=== PATIENT | female | born 1965 | race Caucasian/White ===

== ENCOUNTER 2017-07-08 16:37 | Observation (INO) | payer BC ==
[~2017-07-08] VITALS: Ht 152.4 cm; Wt 37.2 kg
[2017-07-08] MEDS ORDERED: KETOROLAC TROMETHAMINE 30 MG/ML VIAL IV STA (17:07)
[2017-07-08] MEDS ORDERED: CLONIDINE HCL 0.1 MG TAB PO ONE (17:15)
--- NOTE | 2017-07-08 17:33 | Diagnostic Imaging Report ---
EXAMINATION: CHEST 2 VIEWS 07/08/2017 4:38 PM COMPARISON: None INDICATION: Chills DISCUSSION: LINES: None. LUNGS: The lungs are well inflated and clear. No pneumonia or pulmonary edema. PLEURA: No pleural effusion or pneumothorax. HEART AND MEDIASTINUM: The cardiomediastinal silhouette is unremarkable. BONES AND SOFT TISSUES: No acute osseous lesion. The soft tissues are normal. IMPRESSION: No acute cardiopulmonary disease. Bharath San MD Signed by: Dr. Bharath San M.D. on 07/08/2017 5:29 PM
[2017-07-08 17:48] LABS: BASOPHILS % 0.6 % (0.0-1.0); EOSINOPHILS % 0.4 % (0.0-6.0); LYMPHOCYTES # (AUTO) 0.4 (1.0-3.2); LYMPHOCYTES % 6.8 % (18.0-39.1); MEAN CORPUSCULAR HEMOGLOBIN 33.7 pg (28-32); MEAN CORPUSCULAR VOLUME 96.4 fL (81-99); MONOCYTES # (AUTO) 0.6 (0.2-0.8); MONOCYTES % 10.1 % (4.4-11.3); NEUTROPHILS # (AUTO) 4.5 (2.1-6.9); NEUTROPHILS % 81.5 % (38.7-80.0); PLATELET COUNT 91 x10e3/uL (140-360); RED BLOOD COUNT 4.15 x10e6/uL (3.6-5.1); RED CELL DISTRIBUTION WIDTH 12.6 % (11.7-14.4)
[2017-07-08 17:53] LABS: AMPHETAMINES SCREEN,URINE NEGATIVE (NEGATIVE); BENZODIAZEPINES SCREEN,URINE POSITIVE (NEGATIVE); PHENCYCLIDINE SCREEN,URINE NEGATIVE (NEGATIVE)
[2017-07-08 18:03] LABS: ALANINE AMINOTRANSFERASE 50 IU/L (0-55); ALBUMIN 4.4 g/dL (3.5-5.0); ALBUMIN/GLOBULIN RATIO 1.2 (0.8-2.0); ALKALINE PHOSPHATASE 88 IU/L (40-150); ANION GAP 21.5 mmol/L (8-16); BLOOD UREA NITROGEN < 5 mg/dL (7-26); CALCIUM 9.5 mg/dL (8.4-10.2); CARBON DIOXIDE 23 mmol/L (22-29); CHLORIDE 95 mmol/L (98-107); CREATININE, SERUM 0.62 mg/dL (0.57-1.11); EST GLOMERULAR FILTRATION RATE > 60 ML/MIN (60-); GLUCOSE 124 mg/dL (74-118); POTASSIUM 3.5 mmol/L (3.5-5.1); SODIUM 136 mmol/L (136-145)
[2017-07-08 18:08] LABS: BUN/CREATININE RATIO 8 (6-25)
[2017-07-08 18:11] LABS: CREATINE KINASE 83 IU/L (29-168)
[2017-07-08 18:25] LABS: FREE THYROXINE INDEX 1.7022 (1.4-3.8); THYROID STIMULATING HORMONE 2.478 uIU/mL (0.350-4.940)
[2017-07-08] MEDS ORDERED: SODIUM CHLORIDE 0.9% 1000ML 1,000 ML ONE (18:42)
[2017-07-08] MEDS ORDERED: SODIUM CHLORIDE 0.9% 1000ML 1,000 ML IV SCH (18:45)
[2017-07-08] MEDS ORDERED: MECLIZINE HCL 12.5 MG TAB PO ONE (18:45)
[2017-07-08] MEDS ORDERED: SODIUM CHLORIDE FLUSH 10 ML SYR INJ PRN (19:00)
[2017-07-08] MEDS ORDERED: ONDANSETRON HCL INJ 2 MG/ML VIAL IV PRN (19:00)
[2017-07-08] MEDS ORDERED: MORPHINE SULFATE 2 MG/ML SYR IV PRN (19:00)
--- OUTSIDE RECORDS SUMMARY | 2017-07-08 19:05 | XMS REPORT ---
Author [facility] Address Unknown Phone Unavailable Care Team Providers Care Relay Engineer Name Role Phone BEKAH HUNTLEY Unavailable Unavailable Problems This patient has no known problems. Allergies, Adverse Reactions, Alerts This patient has no known allergies or adverse reactions. Medications This patient has no known medications. Results Test Description Test Time Test Comments Text Results Atomic Results Result Comments CHEST 2 VIEWS [place] [address] Patient Name: TATO ADAIR MR #: [id number] : 1965 Age/Sex: 51/F Req #: [id number] Adm Physician: Ordered by: BEKAH HUNTLEY MD Report #: [id number] Location: ER Room/Bed: Procedure: [id number] DX/CHEST 2 VIEWS Exam Date: 07/08/17 Exam Time: 1642 REPORT STATUS: Signed EXAMINATION: CHEST 2 VIEWS 07/08/2017 4: 38 PM COMPARISON: None INDICATION: Chills DISCUSSION: LINES: None. LUNGS: The lungs are well inflated and clear. No pneumonia or pulmonary edema. PLEURA: No pleural effusion or pneumothorax. HEART AND MEDIASTINUM: The cardiomediastinal silhouette is unremarkable. BONES AND SOFT TISSUES: No acute osseous lesion. The soft tissues are normal. IMPRESSION: No acute cardiopulmonary disease. Hero San MD Signed by: Francisco CharlesD. on 07/08/2017 5:29 PM Dictated By: HERO SAN MD 28 Transcribed By: IDALMIS on 07/08/171728 COPY TO: BEKAH HUNTLEY MD
[2017-07-08 20:15] VITALS: BP 134/74
[2017-07-08 21:47] VITALS: BP 134/74
[2017-07-08 22:00] VITALS: BP 134/74
[2017-07-09] VITALS (11 sets, daily range): BP systolic 104–137; BP diastolic 56–79
[2017-07-09 01:41] LABS: CREATINE KINASE 64 IU/L (29-168)
[2017-07-09 07:01] LABS: CHOL/HDL RATIO 1.8 (3.0-3.6)
[2017-07-09 08:09] LABS: CREATINE KINASE 58 IU/L (29-168)
--- NOTE | 2017-07-09 09:40 | History and Physical ---
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 History of amblyopia, history of blindness in the right eye, history of surgery in the past. She had an episode of near syncope when everything seemed to go black. She was sweating and shaking. She has had 8 back surgeries, back pain, degenerative disease. FAMILY HISTORY: Positive for cirrhosis due to hepatitis. She smokes 6 cigarettes a day and was a heavy smoker in the past. Drinks 4 beers a day. Takes Ativan as needed. Worked in [employer]. ALLERGIES: NO KNOWN ALLERGIES. Blind in the right eye. No respiratory problems. No problems. No depression. No heart problems. No stomach problems. Degenerative disease of the spine. Blind in right eye. Apparent vertigo. PHYSICAL EXAMINATION VITALS: Temperature 97.5, pulse 74, respirations 18, blood pressure 132/71. HEENT: Head is normocephalic and atraumatic. Eyes: Extraocular movements intact. GENERAL: She is a slight white female in no acute distress. Appears stated age. LUNGS: Clear. HEART: Regular rhythm. ABDOMEN: Nontender. EXTREMITIES: Not edematous. Cholesterol 207, LDL 83, HDL 1115. Normal TSH. Hemoglobin 14. Blood sugar 124. Will request neurology opinion. Cardiology has already been consulted. Cigarette smoking advised. Trial of nicotine patch. Thank you for this kind referral. Chest x-ray is clear. Job#: [id number] GALEN
[2017-07-09] MEDS: NICOTINE 7 MG PATCH TOP SCH (10:40)
[2017-07-09] MEDS: MECLIZINE HCL 12.5 MG TAB PO SCH ×2 (14:34→20:21)
--- NOTE | 2017-07-09 16:46 | Consultation ---
DATE OF CONSULTATION: July 09, 2017 CARDIOLOGY CONSULTATION REQUESTING PHYSICIAN: Dr. Yo. REASON FOR CONSULTATION: Chest pain. HISTORY OF PRESENT ILLNESS: This is a 51-year-old woman without significant past medical history who presents with complaints of dizziness and chest pain. She began feeling dizzy around 10 a.m. yesterday. This occurred while she was sitting down and was worse with turning her head or looking down. There were times where she felt like she was about to black out because of this. She attempted eating a sandwich thinking it may be her sugar without any improvement, so she presented to the ER for further evaluation. In addition, she began having chest pain approximately 2/10 in severity around the same time. The pain felt like a twitching pressure sensation that lasted seconds off and on throughout the day and was associated with diaphoresis. There was no radiation of shortness of breath or nausea. REVIEW OF SYSTEMS: Negative except as per HPI. PAST MEDICAL HISTORY: None. PAST SURGICAL HISTORY: Back surgery x8. Eye surgery. ALLERGIES: PLEASE SEE EMR. MEDICATIONS: Please see medication list. SOCIAL HISTORY: She smoked up to half a pack a day for the last 30 years. She drinks 4 beers a day. She denies any illicit drugs. FAMILY HISTORY: Noncontributory. PHYSICAL EXAMINATION VITAL SIGNS: Temperature 97.5 degrees, pulse 74, respiratory rate 18, blood pressure 132/72, oxygen saturation 99% on room air. GENERAL: A well-nourished, well-developed woman in no acute distress. HEENT: Normocephalic, atraumatic. Pupils are equal. No scleral icterus. NECK: Supple. No thyromegaly or cervical lymphadenopathy. No carotid bruits. LUNGS: Clear to auscultation bilaterally. No wheezes or crackles. CARDIOVASCULAR: Normal rate, regular rhythm. No murmurs. Normal S1 and S2. ABDOMEN: Soft and nontender. EXTREMITIES: No edema. LABORATORY DATA: WBC 5.45, hemoglobin 14, hematocrit 40, platelets 91,000, sodium 136, potassium 3.5, chloride 95, CO2 of 23, BUN less than 5, creatinine 0.62, troponin less than 0.001. Cholesterol 207, LDL 83, HDL 115, triglycerides 43. Chest x-ray no acute cardiopulmonary disease. EKG, sinus tachycardia, right atrial enlargement. IMPRESSION 1. Dizziness/presyncope. 2. Chest pain. RECOMMENDATIONS: The patient's presyncope is most consistent with vertigo; however, we will check orthostatic vitals. Continue monitoring on telemetry for any arrhythmias that may explain her symptoms. Obtain echocardiogram and carotid Dopplers. Given the patient's risk factors, she warrants ischemic evaluation with pharmacologic nuclear stress test. She is unable to use treadmill due to her vertigo. Unfortunately, she had caffeine this morning. If the patient remains admitted through tomorrow, plan for stress test in the morning, otherwise, she can follow up for outpatient nuclear stress test instead. Thank you for this consult. We will continue to follow. Job#: [id number]
--- NOTE | 2017-07-09 16:52 | Consultation ---
DATE OF CONSULTATION: July 09, 2017, at 3 o'clock in the evening. NEUROLOGICAL CONSULTATION A patient of Dr. Lai Morgan. REASON FOR CONSULTATION: Vertigo. HISTORY OF PRESENT ILLNESS: This is a 51-year-old female who yesterday morning woke up at approximately around 9 o'clock when suddenly she started having an episode of dizziness, vertigo which she described as spinning sensation associated with nausea, vomiting, unable to ambulate. She is complaining of some blurred vision but no diplopia, no speech nor swallowing difficulty, no facial paresthesia, no paresthesia of the lips or tongue, no focal paresthesia, no focal weakness. Up to about 3 o'clock she continued with the vertigo, aggravated when she turned the head to either side, when she sat up or she bent over. So, finally her brought her to the emergency room for further evaluation and management. The patient describes some previous episodes like this 2 or 3 years ago, similar to this, but she never was evaluated for that. At the present time, she is feeling better but still dizzy. PAST HISTORY: She denies hypertension, diabetes mellitus, heart condition, but she has multiple back surgeries and fusion where apparently they put some screws there but she is not having any particular back pain. ALLERGIES: NONE KNOWN. SOCIAL HISTORY: She smokes approximately 6 cigarettes a day. She drinks 4 beers every evening. She is , lives with her . PHYSICAL EXAMINATION VITAL SIGNS: Blood pressure 130/80, pulse 76 regular, afebrile. LUNGS: Clear to auscultation. HEART: Regular sinus rhythm. No murmur. ABDOMEN: Soft. No tenderness. No organomegaly. MUSCULOSKELETAL/LOWER EXTREMITIES: No edema or cyanosis, no clubbing. NEUROLOGIC Mental status: She is oriented x3. Speech clear, no dysarthria or dysphagia. Cranial nerves: Pupils were both equal and reactive. External ocular movements were full. 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 No facial weakness. Facial sensation normal. Tongue protrudes midline. Palatal movements normal. Motor power: Upper and lower extremities: She is able to elevate against gravity without any difficulty. Strength upper extremities: Abduction of the arms 5/5. Flexion and extension of the arms 5/5. Dorsiflexion of the wrists 5/5. Hand light rail transit operator 5/5 bilaterally. Lower extremities: Straight leg raising leg 80 degrees without any discomfort. Flexion of the hips 5/5. Flexion and extension of the knees 5/5. Dorsiflexion of the ankles 5/5. Plantar flexion5/5. Deep tendon reflexes: Triceps, biceps, radials 1+. Knee jerks 1+ bilaterally. Ankle jerks absent bilaterally. Plantar stimulation is down bilaterally. Coordination: Ryildr-me-lwtx is normal. HEAD: Normocephalic. No tenderness to pressure. NECK: Supple. Normal range of motion with aggravation with the dizziness. Carotid pulsations were present bilaterally. There were no bruits. GAIT: I asked the patient to stand up slow. She is able to do it and is able to walk alone without any unsteadiness. She is able to turn around slow. The Romberg test negative. It seems that the patient is feeling better but still dizzy. IMPRESSION: Episode of vertigo, etiology probably peripheral vestibular dysfunction. There is no evidence to suspect posterior fossa TIA. We cannot do an MRI because she has some metal in the back after several surgeries. Will request a CT scan of the brain without contrast. Most likely by tomorrow she will be doing much better. In the meantime, continue with the meclizine. Job#: [id number] EV
--- NOTE | 2017-07-09 17:04 | Diagnostic Imaging Report ---
Examination: CT BRAIN WITHOUT CONTRAST History:Vertigo. Syncope. Comparison studies:None Technique: Axial images were obtained from the skull base to the vertex. Coronal and sagittal images reconstructed from the axial data. Intravenous contrast: None Findings: Scalp: No abnormalities. Bones: No fractures, blastic or lytic lesions. Brain sulci: Mild volume loss for age. Ventricles: Normal in size and configuration. No hydrocephalus. Extra-axial space: No abnormalities. Parenchyma: No abnormal densities. No masses, hemorrhage, or acute or chronic cortical based vascular insults.. Sellar/suprasellar region: No abnormalities. Craniocervical junction: Patent foramen magnum. No Chiari one malformation. Incidental findings: None. Impression: 1. No acute intracranial abnormalities. 2. Mild volume loss. Signed by: Dr. Sadaf Shepherd M.D. on 07/09/2017 5:00 PM
[2017-07-09] MEDS ORDERED: LORAZEPAM 0.5 MG TAB PO PRN (21:00)
[2017-07-10] VITALS (8 sets, daily range): BP systolic 103–146; BP diastolic 63–83
[2017-07-10] MEDS: MECLIZINE HCL 12.5 MG TAB PO SCH ×3 (05:24→21:15)
[2017-07-10] MEDS: NICOTINE 7 MG PATCH TOP SCH (08:34)
[2017-07-10] MEDS ORDERED: REGADENOSON 0.4 MG/5 ML SYR IV ONE (11:39)
--- NOTE | 2017-07-10 15:39 | Cardiology Report ---
DATE OF STUDY: July 10, 2017 PROCEDURE TITLE Rest stress single isotope SPECT imaging with pharmacologic stress and gated SPECT imaging. INDICATIONS: Chest pain. PROCEDURE: Pharmacologic stress testing was performed with regadenoson per protocol. The heart rate was 85 beats per minute at baseline and increased to 139 beats per minute during the regadenoson infusion. The rest blood pressure was 116/69 and increased to 134/76 mmHg, which is a normal response. The patient did not develop any significant symptoms. Resting electrocardiogram demonstrated normal sinus rhythm. There were no ST segment changes consistent with myocardial ischemia. Myocardial perfusion imaging was performed at rest following the injection of 29 mCi of tetrofosmin. At peak pharmacologic effect, the patient was injected with 27 mCi of tetrofosmin. Gated post stress tomographic imaging was performed. FINDINGS: The overall quality of the study is fair. Left ventricular cavity is noted to be normal size on the rest and stress studies. Gated SPECT imaging reveals normal myocardial thickening and wall motion. The left ventricular ejection fraction was calculated to be 69%. IMPRESSION: Myocardial perfusion imaging is normal. Overall left ventricular systolic function was normal without regional wall motion abnormalities. Job#: [id number] GH cc:ZANDER MENDEZ M.D.
[2017-07-10] MEDS: PSEUDOEPHEDRINE HCL 30 MG TAB PO SCH (17:43)
[2017-07-10] MEDS: FLUTICASONE PROPIONATE NASAL SPRAY NS SCH (17:43)
--- NOTE | 2017-07-10 20:14 | Progress Note ---
DATE: July 10, 2017 CARDIOLOGY PROGRESS NOTE SUBJECTIVE: Patient denies chest pain or shortness of breath. She reports her dizziness is improved but remains present. OBJECTIVE VITALS: Temperature 97.4 degrees, pulse 97, respiratory rate 18, blood pressure 112/68, oxygen saturation 98% on room air. GENERAL: Awake, alert, in no acute distress. LUNGS: Clear to auscultation bilaterally. No wheezes or crackles. CARDIOVASCULAR: Normal rate, regular rhythm. No murmur. Normal S1 and S2. ABDOMEN: Soft and nontender. EXTREMITIES: No edema. CARDIAC MEDICATIONS 1. Nicotine patch 7 mg topically daily. 2. Heparin 5,000 units subcutaneous q.12 h. LABS: None today. TELEMETRY: Normal sinus rhythm. IMPRESSION 1. Dizziness/presyncope. 2. Chest pain. RECOMMENDATIONS: The patient will proceed with pharmacologic nuclear stress test today to further evaluate her chest pain. Suspect the patient's dizziness is most likely vertigo based on the patient's description. Continue current cardiac medications. Discussed heart healthy, low-fat, low-cholesterol diet and exercise with the patient due to hyperlipidemia. Thank you for this consult. We will continue to follow. Job#: [id number]
[2017-07-10] MEDS: HEPARIN SOD (PORCINE) 5,000 UNIT/ML VIAL SC SCH (21:00)
[2017-07-11] MEDS: MECLIZINE HCL 12.5 MG TAB PO SCH (05:03)
[2017-07-11 05:04] VITALS: BP 136/64
[2017-07-11 08:07] VITALS: BP 132/73
[2017-07-11 08:17] VITALS: BP 132/73
[2017-07-11] MEDS: FLUTICASONE PROPIONATE NASAL SPRAY NS SCH (09:00)
[2017-07-11] MEDS: HEPARIN SOD (PORCINE) 5,000 UNIT/ML VIAL SC SCH (09:00)
[2017-07-11] MEDS: PSEUDOEPHEDRINE HCL 30 MG TAB PO SCH (09:00)
[2017-07-11] MEDS ORDERED: MECLIZINE HCL12.5 MG PO ×2 (09:09→09:36)
[2017-07-11] MEDS ORDERED: NICOTINE PATCH1 EAC5 EXT (09:16)
[2017-07-11] MEDS: NICOTINE 7 MG PATCH TOP SCH (09:19)
[2017-07-11] MEDS ORDERED: NICOTINE PATCH1 EAC5 (09:36)
--- NOTE | 2017-07-11 09:47 | Discharge Summary ---
Patient of Dr. Ahuja. A charming but unfortunate 51-year-old woman admitted with vertigo and some blurring of vision, history of chronic back pain with multiple surgeries, history of smoking 6 cigarettes a day and 4 beers in the evening. and lives with her . She also had atypical chest pain. Cardiac evaluation was essentially normal. Diagnosed with peripheral vestibular dysfunction. She was treated with Antivert and improved. Is discharged to be followed by Dr. Ahuja as an outpatient. Hemoglobin was 14. TSH was 2.47. Cholesterol 207, LDL 83 and HDL 115. She is discharged much improved. She is ambulating and has no complaints today. FILIPE RODRIGUEZ MD Job#: [id number] AR
== END 2017-07-11 09:59 | disposition home or self-care (01) ==
LOC: ER 16:37 → ERHOLD 18:46 → IMCU 19:50
PROVIDERS: ADMIT Internal Medicine; ATTEND Internal Medicine
DX: H81.393 Other peripheral vertigo, bilateral (principal); R07.89 Other chest pain; R55 Syncope and collapse; F17.210 Nicotine dependence, cigarettes, uncomplicated; G89.29 Other chronic pain
CPT/HCPCS: 36415 ×2; 70450; 71046; 78452; 80053; 80061; 80307; 82550 ×2; 82553 ×2; 84436; 84443; 84479; 84484 ×2; 85025; 87400; 93005; 93017; 93306; 93880; 99284; A9502; G0378 ×4; J1644; J1885; J7030

== ENCOUNTER 2017-12-11 07:31 | Inpatient (IN) | payer BC ==
[~2017-12-11] VITALS: Ht 152.4 cm; Wt 55.1 kg
[2017-12-11] VITALS (21 sets, daily range): BP systolic 86–159; BP diastolic 61–87
[2017-12-11] MEDS: IPRATROPIUM BROMIDE 0.02% 2.5 ML NEB NEB SCH ×2 (00:10→19:20)
[~2017-12-11 07:31] MED LIST: MECLIZINE HCL12.5 MG PO; NICOTINE PATCH1 EAC5; NICOTINE PATCH1 EAC5 EXT
[2017-12-11] MEDS ORDERED: KETOROLAC TROMETHAMINE 30 MG/ML VIAL IV STA ×2 (08:14→09:43)
[2017-12-11] MEDS ORDERED: NIFEDIPINE 10 MG CAP PO STA (08:14)
[2017-12-11] MEDS ORDERED: ONDANSETRON HCL INJ 2 MG/ML VIAL IV STA ×2 (08:14→09:43)
[2017-12-11] MEDS ORDERED: SODIUM CHLORIDE 0.9% 1000ML 1,000 ML IV STA (08:31)
[2017-12-11] MEDS ORDERED: SODIUM CHLORIDE 0.9% 1000ML 1,000 ML ONE (08:34)
[2017-12-11 08:53] LABS: BASOPHILS % 1.4 % (0.0-1.0); EOSINOPHILS % 0.7 % (0.0-6.0); HEMATOCRIT 32.1 % (34.2-44.1); HEMOGLOBIN 12.1 g/dL (12.0-16.0); LYMPHOCYTES # (AUTO) 0.1 (1.0-3.2); LYMPHOCYTES % 4.1 % (18.0-39.1); MEAN CORPUSCULAR HEMOGLOBIN 34.3 pg (28-32); MEAN CORPUSCULAR HGB CONC 37.7 g/dL (31-35); MEAN CORPUSCULAR VOLUME 90.9 fL (81-99); MONOCYTES # (AUTO) 0.1 (0.2-0.8); MONOCYTES % 5.4 % (4.4-11.3); NEUTROPHILS # (AUTO) 1.3 (2.1-6.9); NEUTROPHILS % 88.4 % (38.7-80.0); PLATELET COUNT 72 x10e3/uL (140-360); RED BLOOD COUNT 3.53 x10e6/uL (3.6-5.1); RED CELL DISTRIBUTION WIDTH 11.9 % (11.7-14.4)
[2017-12-11 08:58] LABS: INR 1.04; PROTHROMBIN TIME 12.8 seconds (11.9-14.5)
[2017-12-11 09:05] LABS: PARTIAL THROMBOPLASTIN TIME 29.2 seconds (23.8-35.5)
[2017-12-11 09:07] LABS: ALANINE AMINOTRANSFERASE 51 IU/L (0-55); ALBUMIN 2.3 g/dL (3.5-5.0); ALBUMIN/GLOBULIN RATIO 0.6 (0.8-2.0); ALKALINE PHOSPHATASE 63 IU/L (40-150); ANION GAP 18.5 mmol/L (8-16); BLOOD UREA NITROGEN 34 mg/dL (7-26); BUN/CREATININE RATIO 40 (6-25); CALCIUM 8.4 mg/dL (8.4-10.2); CARBON DIOXIDE 21 mmol/L (22-29); CHLORIDE 89 mmol/L (98-107); CREATINE KINASE 1566 IU/L (29-168); CREATININE, SERUM 0.84 mg/dL (0.57-1.11); EST GLOMERULAR FILTRATION RATE > 60 ML/MIN (60-); GLUCOSE 84 mg/dL (74-118); SODIUM 126 mmol/L (136-145)
[2017-12-11 09:08] LABS: POTASSIUM 2.5 mmol/L (3.5-5.1)
[2017-12-11 09:14] LABS: B-TYPE NATRIURETIC PEPTIDE2 758.3 pg/mL (0-100)
[2017-12-11 09:17] LABS: HIV 1&2 AB SCREEN NON-REACTIVE (NONREACTIVE)
[2017-12-11 09:26] LABS: THYROID STIMULATING HORMONE 1.899 uIU/mL (0.350-4.940)
[2017-12-11] MEDS ORDERED: POTASSIUM CHLORIDE 20MEQ/15ML UDC PO ONE (09:30)
--- NOTE | 2017-12-11 09:36 | Diagnostic Imaging Report ---
PROCEDURE: CHEST SINGLE (PORTABLE) COMPARISON: 07/08/2017. INDICATIONS: WEAKNESS. DIZZINESS. POSTERIOR NECK PAIN FINDINGS: Lungs are well-inflated. There is hazy right lower lobe opacity with suspected pleural effusion. Left lung is clear. Cardiomediastinal contour is stable. No acute osseous abnormalities. CONCLUSION: Right pleural effusion with associated right lower lobe airspace disease, which may reflect passive atelectasis or pneumonia in the appropriate clinical setting. Followup chest radiograph in 6-8 weeks is suggested to document resolution. Dictated by: Lai Poole M.D. on 12/11/2017 at 9:42 Electronically approved by: Lai Poole M.D. on 12/11/2017 at 9:42
[2017-12-11 09:41] LABS: ANISOCYTOSIS MODE; PLATELET ESTIMATE SLIGHTLY DECREASED; PLATELET MORPHOLOGY COMMENT FEW LARGE; POIKILOCYTOSIS SLIGHT; RBC MORPHOLOGY COMMENT NORMAL
--- NOTE | 2017-12-11 09:50 | Diagnostic Imaging Report ---
Examination: CT BRAIN WITHOUT CONTRAST History:Dizziness. Weakness. Vertigo. Falls. Comparison studies:Head CT performed July 09, 2017 Technique: Axial images were obtained from the skull base to the vertex. Coronal and sagittal images reconstructed from the axial data. Intravenous contrast: None Findings: Scalp: No abnormalities. Bones: No fractures, blastic or lytic lesions. Brain sulci: Mild volume loss for age particularly of the bilateral cerebellar hemispheres. Ventricles: Normal in size and configuration. No hydrocephalus. Extra-axial space: No abnormalities. Parenchyma: No abnormal densities. No masses, hemorrhage, or acute or chronic cortical based vascular insults.. Sellar/suprasellar region: No abnormalities. Craniocervical junction: Patent foramen magnum. No Chiari one malformation. Incidental findings: None. Impression: 1. No new intracranial abnormalities when compared to prior head CT performed July 09, 2017. 2. Unchanged mild volume loss particularly the bilateral cerebellar hemispheres. Signed by: Dr. Sadaf Shepherd M.D. on 12/11/2017 9:46 AM
[2017-12-11] MEDS ORDERED: ONDANSETRON HCL INJ 2 MG/ML VIAL IV SCH (09:51)
--- NOTE | 2017-12-11 11:13 | Diagnostic Imaging Report ---
PROCEDURE: CT scan of the chest WITH intravenous contrast, using standard protocol. TECHNIQUE: The chest was scanned utilizing a multidetector helical scanner from the lung apex through the level of the adrenal glands after the IV administration of 65 cc of Isovue 370. Coronal and sagittal multiplanar reformations were obtained. COMPARISON: Same day chest radiograph INDICATIONS: SHORT OF BREATH FINDINGS: Examination is slightly limited by respiratory motion artifact. Lines/tubes: None. Pulmonary Arteries: Technically adequate examination. No evidence of pulmonary embolus. The main pulmonary artery is normal in caliber, measuring 2.6 cm. Lungs and Airways: There is a near complete atelectasis and consolidation of the right lower lobe. There are patchy centrilobular opacities in the posterior segment of the right upper lobe. Patchy, centrilobular opacities in the left lung base. There are a few groundglass centrilobular nodules in the left upper lobe. Pleura: Small right pleural effusion. No pneumothorax. Heart and mediastinum: The thyroid gland is normal. No significant mediastinal, hilar or axillary lymphadenopathy is seen. The heart and pericardium are within normal limits. Soft tissues: Bilateral breast implants are present. Abdomen: Limited views of the upper abdomen show no specific abnormality. Bones: The visualized bony thorax is within normal limits. IMPRESSION: No pulmonary embolus. Near complete atelectasis and consolidation of the right lower lobe. Patchy opacities in left lung base. The findings are suspicious for multifocal pneumonia. Dictated by: Bharath San M.D. on 12/11/2017 at 11:18 Electronically approved by: Bharath San M.D. on 12/11/2017 at 11:18
[2017-12-11] MEDS ORDERED: PIPER-TAZ 3.375 GM 50 ML IV STA (11:16)
[2017-12-11] MEDS ORDERED: SODIUM CHLORIDE 0.9% 1000ML 1,000 ML IV SCH (11:30)
[2017-12-11] MEDS ORDERED: MORPHINE SULFATE 2 MG/ML SYR IV STA (11:49)
[2017-12-11] MEDS ORDERED: DIPHENHYDRAMINE HCL INJ 50 MG/ML VIAL ONE (12:14)
[2017-12-11] MEDS: ALBUTEROL SULF 0.083% NEB SOLN 3 ML NEB NEB SCH ×3 (12:45→23:00)
[2017-12-11] MEDS ORDERED: NICOTINE 21 MG/EA PATCH TOP SCH (12:45)
[2017-12-11] MEDS ORDERED: DIPHENHYDRAMINE HCL INJ 50 MG/ML VIAL IV ONE (12:45)
[2017-12-11] MEDS ORDERED: D5.45%NS/KCL 20MEQ 1,000 ML IV SCH (12:45)
[2017-12-11] MEDS ORDERED: AZITHROMYCIN 500MG/SOD CHL 0.9% 250ML BAG IV SCH (12:45)
[2017-12-11] MEDS ORDERED: FILGRASTIM 300 MCG/ML VIAL SC STA (12:49)
[2017-12-11] MEDS ORDERED: AZITHROMYCIN 500MG/NS 250 ML 250 ML IV SCH (14:00)
[2017-12-11] MEDS ORDERED: ONDANSETRON HCL INJ 2 MG/ML VIAL IV PRN (14:15)
[2017-12-11] MEDS ORDERED: MORPHINE SULFATE 2 MG/ML SYR IV PRN (14:15)
[2017-12-11] MEDS ORDERED: MORPHINE SULFATE INJ 4 MG/ML INJ IV PRN (14:30)
[2017-12-11] MEDS ORDERED: IOPAMIDOL 370 MG/ML 200 ML INFUS..BTL INJ ONE (14:47)
[2017-12-11] MEDS ORDERED: SODIUM CHLORIDE 0.9% 50ML 50 ML ONE (14:47)
[2017-12-11] MEDS: NICOTINE 7 MG PATCH TOP SCH (15:00)
[2017-12-11] MEDS: THIAMINE HCL 100 MG TAB PO SCH ×2 (16:30→17:10)
[2017-12-11] MEDS ORDERED: CELECOXIB 100 MG CAP PO SCH (17:00)
[2017-12-11] MEDS: PANTOPRAZOLE SOD 40 MG TABEC PO SCH ×2 (17:10→17:29)
[2017-12-11 17:25] LABS: ABG PCO2 23 mmHg (41-51); ABG PH 7.39 (7.31-7.41); ABG PO2 53 mmHg (80-105)
[2017-12-11 17:26] LABS: ABG HCO3 14 mmol/L (23-28)
[2017-12-11] MEDS: D5NS/KCL 20MEQ 1,000 ML IV SCH (17:36)
[2017-12-11] MEDS: FILGRASTIM 480 MCG/0.8 ML VIAL SC SCH (17:40)
[2017-12-11 17:55] LABS: ABG HCO3 14 mmol/L (23-28); ABG PH 7.38 (7.31-7.41); ABG PO2 50 mmHg (80-105)
[2017-12-11 17:57] LABS: ABG PCO2 23 mmHg (41-51)
[2017-12-11 17:58] LABS: ANION GAP 16.2 mmol/L (8-16); BLOOD UREA NITROGEN 23 mg/dL (7-26); BUN/CREATININE RATIO 33 (6-25); CALCIUM 7.4 mg/dL (8.4-10.2); CARBON DIOXIDE 16 mmol/L (22-29); CHLORIDE 105 mmol/L (98-107); CREATININE, SERUM 0.69 mg/dL (0.57-1.11); EST GLOMERULAR FILTRATION RATE > 60 ML/MIN (60-); GLUCOSE 94 mg/dL (74-118); SODIUM 135 mmol/L (136-145)
[2017-12-11] MEDS ORDERED: IPRATROPIUM BROMIDE 0.02% 2.5 ML NEB NEB SCH (18:00)
[2017-12-11 18:01] LABS: POTASSIUM 2.2 mmol/L (3.5-5.1)
--- NOTE | 2017-12-11 18:01 | History and Physical ---
Ms. Traore is a complex 51-year-old woman with multiple medical problems who presented to the emergency room with progressive shortness of breath and cough. HISTORY OF PRESENT ILLNESS: The patient's family tells us that she was drinking "shots of alcohol" on Sunday evening, the 07 of December when she vomited and then apparently was felt to have lethargy due to hangover, according to the family, but she continues to be short breath with a dry cough and not feeling well. PAST MEDICAL HISTORY: Significant for cirrhosis felt to be due to hepatitis in the past. She had surgery for amblyopia as a child. She had previous back surgeries, previous hospitalizations for vertigo. REVIEW OF SYSTEMS: The patient reports she thinks she may have lost as much as 20 pounds of weight in the last year. PHYSICAL EXAM: GENERAL: At this time shows a white woman who looks younger than her stated age. VITAL SIGNS: Blood pressure 100/50. HEENT: Relatively unremarkable. THORAX: Heart sounds S1 and S2 are equal and regular. LUNGS: Bilateral faint rhonchi. ABDOMEN: Scaphoid with normal bowel sounds. EXTREMITIES: Thin. PERSONAL/SOCIAL HISTORY: The patient's family admits that she continues to smoke cigarettes as well. PERTINENT LABORATORY STUDIES: Hemoglobin 12.1, hematocrit 32.1, white count 1.4 thousand and platelets 72,000. Chemistry shows sodium 126, potassium 2.5, chloride 89, bicarbonate 21, glucose 84, BUN 34, creatinine 0.8. BNP is 758. Troponin is negative. AST is 161. HIV is negative. D-dimer is 4770. Chest x-ray shows bilateral infiltrates suggesting aspiration pneumonia. ASSESSMENT: 1. Bilateral pneumonia/aspiration. 2. Alcohol abuse. 3. Hyponatremia. 4. Hypokalemia. 5. Neutropenia. 6. Elevated BNP with history of echocardiogram reported as normal ejection fraction in June of 2017 here to [facility]. PLAN: Will hydrate and use normal saline, broad-spectrum antibiotics. Will recheck EKG and echocardiogram. Appreciate help from Dr. Rodriguez and Dr. Cabrera. Further management based on clinical course. Job#: [id number] cc:FILIPE RODRIGUEZ MD cc: DR. CABRERA.
--- NOTE | 2017-12-11 18:10 | Consultation ---
DATE OF CONSULTATION: December 11, 2017 PULMONARY CONSULTATION A [facility] 51-year-old woman with a history of heavy drinking over the weekend and vomiting, drinking vodka. She had persistent pain on the right side, shortness of breath and dizziness. She admits to choking, but denies aspiration of sold food. No low-grade fever, no chills, dry cough. Weight loss 15 pounds over the last year. She works in sales. Born in [place], [place]. FAMILY HISTORY: Noncontributory. ALLERGIES: NO KNOWN DRUG ALLERGIES. MEDICATIONS: No regular medications. Has been taking NicoDerm and meclizine. PAST SURGICAL HISTORY: She had 8 back surgeries related to sciatica. PHYSICAL EXAMINATION GENERAL: A frail, anxious white female lying supine. Difficult for her to take deep breaths or move to her left side. VITAL SIGNS: Temperature 98.8, pulse 105, blood pressure 101/68. HEAD: Normocephalic, atraumatic. LUNGS: Bronchial breath sounds right lower lobe. HEART: Regular rhythm. ABDOMEN: Nontender. EXTREMITIES: Not edematous. Likely aspiration pneumonia. Pancytopenia with white count of only 1.48. Hemoglobin is 12 and platelet count 72,000. HIV screen was negative. Sodium 126, potassium 2.5. BUN ____. IMPRESSION AND PLAN: Massive aspiration pneumonia. The patient may require bronchoscopy if not doing better. Continue bronchodilators and empiric antibiotic therapy. Will tentatively schedule bronchoscopy. Thank you for this kind referral. Job#: [id number]
[2017-12-11] MEDS: PIPER-TAZ 3.375 GM 50 ML IV SCH (18:35)
[2017-12-11] MEDS ORDERED: ETOMIDATE 2 MG/ML 10 ML INJ IV ONE (18:39)
[2017-12-11] MEDS ORDERED: VECURONIUM BROMIDE FOR INJ 20 MG VIAL ONE (18:39)
[2017-12-11] MEDS ORDERED: WATER STERILE 10 ML VIAL ONE (18:39)
[2017-12-11] MEDS ORDERED: SUCCINYLCHOLINE CHLORIDE 20 MG/ML 10ML VIAL ONE (18:39)
[2017-12-11] MEDS ORDERED: MIDAZOLAM HCL 2 MG/2 ML VIAL ONE (18:39)
--- NOTE | 2017-12-11 19:14 | Diagnostic Imaging Report ---
PROCEDURE: A single AP view of the chest. COMPARISON: 12/11/2017 INDICATIONS: S/P INTUBATION, NG TUBE PLACEMENT FINDINGS: Lines/tubes: The patient has been intubated. The endotracheal tube has its tip about 2-3 cm above the alvin. NG/OG tube tip is in the stomach. Lungs: Right lower lobe consolidation, unchanged. Stable left lower lobe opacities. Pleura: Small right pleural effusion. Heart and mediastinum: The heart and the mediastinum are unremarkable. Bones: No acute bony abnormality. A metallic object projected over the lower lumbar spine is partially visualized. IMPRESSION: Endotracheal tube has its tip about 2-3 cm above the alvin. NG/OG tube tip is in the stomach. Multifocal pneumonia, appearing unchanged. Dictated by: Bharath San M.D. on 12/11/2017 at 19:19 Electronically approved by: Bharath San M.D. on 12/11/2017 at 19:19
[2017-12-11] MEDS ORDERED: VANCOMYCIN 750MG/NS 150ML IVPB 150 ML IV SCH (19:30)
[2017-12-11] MEDS ORDERED: PROPOFOL IV EMULSION 10 MG/ML 50 ML VIAL IV PRN (19:30)
[2017-12-11] MEDS: ACETAMINOPHEN 325 MG TAB PO PRN (20:30)
[2017-12-11] MEDS: VANCOMYCIN 500MG/NS 0.9% 100ML 100 ML IV SCH (20:30)
[2017-12-11] MEDS ORDERED: MIDAZOLAM HCL 25 MG in SODIUM CHLORIDE 0.9% 50ML 45 ML IV PRN (21:00)
[2017-12-11 21:43] LABS: ABG HCO3 16 mmol/L (23-28); ABG PCO2 41 mmHg (41-51); ABG PO2 221 mmHg (80-105)
[2017-12-11] MEDS ORDERED: SODIUM BICARBONATE 8.4% INJ 50 ML SYR IV STA (21:55)
[2017-12-12] VITALS (100 sets, daily range): BP systolic 75–155; BP diastolic 49–101
[2017-12-12] MEDS: PIPER-TAZ 3.375 GM 50 ML IV SCH ×4 (00:38→18:06)
[2017-12-12] MEDS: D5NS/KCL 20MEQ 1,000 ML IV SCH (02:45)
[2017-12-12] MEDS: ALBUTEROL SULF 0.083% NEB SOLN 3 ML NEB NEB SCH ×6 (03:00→23:00)
[2017-12-12] MEDS: IPRATROPIUM BROMIDE 0.02% 2.5 ML NEB NEB SCH ×2 (03:10→07:00)
[2017-12-12] MEDS: PROPOFOL IV EMULSION 10MG/ML 100 ML IV PRN ×2 (03:34→22:10)
[2017-12-12] MEDS: D5.45%NS/KCL 20MEQ 1,000 ML IV SCH ×3 (04:00→23:16)
[2017-12-12] MEDS: ACETAMINOPHEN 325 MG TAB PO PRN ×2 (04:45→09:56)
[2017-12-12 05:44] LABS: BASOPHILS % 0.4 % (0.0-1.0); EOSINOPHILS % 0.8 % (0.0-6.0); HEMATOCRIT 30.3 % (34.2-44.1); HEMOGLOBIN 10.7 g/dL (12.0-16.0); LYMPHOCYTES # (AUTO) 0.1 (1.0-3.2); LYMPHOCYTES % 2.7 % (18.0-39.1); MEAN CORPUSCULAR HEMOGLOBIN 33.5 pg (28-32); MEAN CORPUSCULAR HGB CONC 35.3 g/dL (31-35); MONOCYTES # (AUTO) 0.2 (0.2-0.8); MONOCYTES % 8.6 % (4.4-11.3); NEUTROPHILS # (AUTO) 2.2 (2.1-6.9); NEUTROPHILS % 87.5 % (38.7-80.0); PLATELET COUNT 59 x10e3/uL (140-360); RED BLOOD COUNT 3.19 x10e6/uL (3.6-5.1); RED CELL DISTRIBUTION WIDTH 12.7 % (11.7-14.4)
--- NOTE | 2017-12-12 06:22 | Diagnostic Imaging Report ---
CHEST SINGLE (PORTABLE), 12/12/2017 5:00 AM Technique: CHEST SINGLE (PORTABLE) Comparison: 12/11/2017 Clinical history: Pneumonia Findings: See Impression Impression: 1. Lines/Tubes: ET tube about 3 cm above the alvin. A new G-tube extends subdiaphragmatically. 2. Normal cardiomediastinal silhouette. 3. Right basilar consolidation in keeping with history of pneumonia. Underlying right pleural effusion. Recommend follow-up upright PA and lateral. 4. Density over the hemithoraces related to breast implants. Signed by: Dr Chelly Christensen MD on 12/12/2017 6:18 AM
[2017-12-12 06:24] LABS: ALANINE AMINOTRANSFERASE 35 IU/L (0-55); ALBUMIN 1.5 g/dL (3.5-5.0); ALBUMIN/GLOBULIN RATIO 0.5 (0.8-2.0); ALKALINE PHOSPHATASE 53 IU/L (40-150); ANION GAP 16.3 mmol/L (8-16); BLOOD UREA NITROGEN 22 mg/dL (7-26); BUN/CREATININE RATIO 28 (6-25); CALCIUM 7.3 mg/dL (8.4-10.2); CARBON DIOXIDE 16 mmol/L (22-29); CHLORIDE 109 mmol/L (98-107); CREATININE, SERUM 0.79 mg/dL (0.57-1.11); EST GLOMERULAR FILTRATION RATE > 60 ML/MIN (60-); GLUCOSE 213 mg/dL (74-118); SODIUM 139 mmol/L (136-145)
[2017-12-12 06:25] LABS: POTASSIUM 2.3 mmol/L (3.5-5.1)
[2017-12-12] MEDS ORDERED: POTASSIUM CHLORIDE 20 MEQ TAB CR PO STA (06:33)
[2017-12-12] MEDS ORDERED: POTASSIUM CHLORIDE 20MEQ/100ML 100 ML IV ONE (06:45)
[2017-12-12] MEDS: VANCOMYCIN 500MG/NS 0.9% 100ML 100 ML IV SCH (07:15)
[2017-12-12 08:28] LABS: BAND NEUTROPHILS % (MANUAL) 17 %; EOSINOPHILS % (MANUAL) 2 % (0-7); LYMPHOCYTES % (MANUAL) 4 % (19-48); MONOCYTES % (MANUAL) 8 % (3.4-9.0); NEUTROPHILS % (MANUAL) 63 % (40-74)
[2017-12-12 08:29] LABS: ANISOCYTOSIS SLIGHT; HYPOCHROMASIA SLIGHT; PLATELET ESTIMATE MARKEDLY DECREASED; PLATELET MORPHOLOGY COMMENT FEW GIANT; RBC MORPHOLOGY COMMENT NORMAL
[2017-12-12 08:34] LABS: PHOSPHORUS 3.2 MG/DL (2.3-4.7)
[2017-12-12 08:35] LABS: MAGNESIUM 1.2 MG/DL (1.3-2.1)
[2017-12-12] MEDS ORDERED: FILGRASTIM 300 MCG/ML VIAL SC SCH (09:00)
[2017-12-12] MEDS: PANTOPRAZOLE 40 MG 10ML VIAL IV SCH ×2 (09:00→17:00)
[2017-12-12] MEDS ORDERED: NICOTINE 7 MG PATCH TOP SCH (09:00)
[2017-12-12] MEDS: FILGRASTIM 480 MCG/0.8 ML VIAL SC SCH (09:00)
[2017-12-12] MEDS ORDERED: THIAMINE HCL INJ 100 MG in SODIUM CHLORIDE 0.9% 50ML 50 ML IV SCH (09:00)
[2017-12-12] MEDS: NICOTINE 7 MG PATCH TOP SCH (09:00)
[2017-12-12] MEDS: THIAMINE HCL INJ 100 MG in SODIUM CHLORIDE 0.9% 50ML 50 ML IV SCH (09:00)
--- NOTE | 2017-12-12 14:26 | Diagnostic Imaging Report ---
PROCEDURE: A single AP view of the chest. COMPARISON: Same date at 5:50 AM INDICATIONS: PICC LINE PLACEMENT FINDINGS: Lines/tubes: Stable endotracheal and nasogastric tubes. New right PICC in place with tip overlying the inferior SVC. Lungs: Unchanged right mid to lower lung field opacification. Decreased left lower lung field opacification. Pleura: There is no visible pneumothorax. Heart and mediastinum: The heart and the mediastinum are unremarkable. Bones: No acute bony abnormality. IMPRESSION: 1. New right PICC in place with tip overlying interest. No visible pneumothorax. 2. Unchanged right mid to lower lung field opacification, likely pneumonia. 3. Decreased left lower lung field hazy opacification. Dictated by: Moncho Joseph M.D. on 12/12/2017 at 14:31 Electronically approved by: Moncho Joseph M.D. on 12/12/2017 at 14:31
[2017-12-12 15:08] LABS: ANION GAP 16.4 mmol/L (8-16); BLOOD UREA NITROGEN 21 mg/dL (7-26); BUN/CREATININE RATIO 26 (6-25); CALCIUM 7.2 mg/dL (8.4-10.2); CARBON DIOXIDE 15 mmol/L (22-29); CHLORIDE 112 mmol/L (98-107); CREATININE, SERUM 0.81 mg/dL (0.57-1.11); EST GLOMERULAR FILTRATION RATE > 60 ML/MIN (60-); GLUCOSE 191 mg/dL (74-118); POTASSIUM 3.4 mmol/L (3.5-5.1); SODIUM 140 mmol/L (136-145)
[2017-12-12] MEDS: ACETAMINOPHEN 325 MG/10 ML UDC NG PRN (15:30)
[2017-12-12 15:35] LABS: HIV 1&2 AB SCREEN NON-REACTIVE (NONREACTIVE)
--- NOTE | 2017-12-12 16:06 | Diagnostic Imaging Report ---
EXAM: Limited chest ultrasound INDICATION: \S\right effusion COMPARISON: Chest x-ray of the same date. TECHNIQUE: Transverse and longitudinal images of the bilateral chest wall were obtained. FINDINGS: See impression. IMPRESSION: No right pleural effusion visualized. Trace left pleural effusion. Signed by: Dr. Moncho Joseph MD on 12/12/2017 4:03 PM
--- NOTE | 2017-12-12 16:32 | Consultation ---
DATE OF CONSULTATION: INFECTIOUS DISEASE CONSULT REASON FOR CONSULTATION: Pneumonia and sepsis on admission. HISTORY OF PRESENT ILLNESS: This is a patient who is a 51-year-old female. Apparently the patient had been having tequila shots a few days ago. Apparently she threw up. Patient was not feeling well. Her boyfriend noticed that she was sick. He thought it was probably just from alcohol. She was leaning to the right according to him. The patient the morning of admission was not feeling well at all. He brought her to the emergency room. In the emergency room she was lethargic, had to be admitted. The patient is currently intubated but alert, family at bedside. She has history of liver cirrhosis, probably alcoholism, a history of multiple back surgeries. ALLERGIES: NKA. SOCIAL HISTORY: Alcoholism. REVIEW OF SYSTEMS: As above now. The patient is alert. Could not obtain information. LABORATORY DATA: Her blood culture is showing streptococcus species alpha-hemolytic. Her lab otherwise showed a white count of 2.55 today, was 1.48 yesterday. Hemoglobin 12. PHYSICAL EXAMINATION: GENERAL: She is currently alert, oriented, does not seem to be in acute distress. VITALS: Stable. Currently afebrile. HEENT: She does not appear icteric. NECK: Supple. CHEST: A few rhonchi bilaterally. HEART: S1 and S2. No S3 or S4. No murmur. ABDOMEN: Soft. IMPRESSION: 1. Sepsis on admission secondary to aspiration pneumonia. 2. Alcoholism. 3. Liver cirrhosis. 4. Bacteremia, alpha strep. Continue with vancomycin and Zosyn for the time-being. Recheck her blood cultures. Check echocardiogram. Check HIV, hepatitis A, B and C serology. 5. Respiratory failure. 6. Leukopenia from sepsis. Getting better. 7. Concerned about the , also liver disease from alcoholism. Will follow with you. Further recommendations depending on the above finding. Job#: [id number] EV
[2017-12-12] MEDS ORDERED: POTASSIUM CHLORIDE 10MEQ/100ML 200 ML IV ONE (17:45)
[2017-12-12] MEDS: VANCOMYCIN 1GM/NS 250 ML 250 ML IV SCH (18:06)
[2017-12-12] MEDS: NOREPINEPHRINE 8 MG/D5W 250 ML 250 ML IV SCH (19:44)
[2017-12-12] MEDS: CITRIC ACID/SODIUM CITRATE 30 ML UDC PO SCH (22:11)
[2017-12-13] VITALS (89 sets, daily range): BP systolic 92–129; BP diastolic 32–87
[2017-12-13] MEDS: PIPER-TAZ 3.375 GM 50 ML IV SCH ×2 (00:08→06:28)
[2017-12-13] MEDS: ALBUTEROL SULF 0.083% NEB SOLN 3 ML NEB NEB SCH ×6 (03:00→23:00)
[2017-12-13 05:21] LABS: BASOPHILS % 0.1 % (0.0-1.0); EOSINOPHILS # (AUTO) 0.1 (0.0-0.4); EOSINOPHILS % 0.5 % (0.0-6.0); HEMATOCRIT 29.4 % (34.2-44.1); HEMOGLOBIN 10.5 g/dL (12.0-16.0); LYMPHOCYTES # (AUTO) 0.1 (1.0-3.2); MEAN CORPUSCULAR HEMOGLOBIN 33.8 pg (28-32); MEAN CORPUSCULAR HGB CONC 35.7 g/dL (31-35); MEAN CORPUSCULAR VOLUME 94.5 fL (81-99); MONOCYTES # (AUTO) 0.4 (0.2-0.8); MONOCYTES % 4.5 % (4.4-11.3); NEUTROPHILS # (AUTO) 9.2 (2.1-6.9); NEUTROPHILS % 93.1 % (38.7-80.0); RED BLOOD COUNT 3.11 x10e6/uL (3.6-5.1)
[2017-12-13 05:47] LABS: PLATELET COUNT 35 x10e3/uL (140-360)
[2017-12-13 05:49] LABS: ANION GAP 16.3 mmol/L (8-16); BLOOD UREA NITROGEN 19 mg/dL (7-26); BUN/CREATININE RATIO 24 (6-25); CARBON DIOXIDE 13 mmol/L (22-29); CHLORIDE 115 mmol/L (98-107); CREATININE, SERUM 0.79 mg/dL (0.57-1.11); EST GLOMERULAR FILTRATION RATE > 60 ML/MIN (60-); GLUCOSE 121 mg/dL (74-118); POTASSIUM 3.3 mmol/L (3.5-5.1); SODIUM 141 mmol/L (136-145)
[2017-12-13 05:50] LABS: CALCIUM 6.9 mg/dL (8.4-10.2)
--- NOTE | 2017-12-13 06:05 | Diagnostic Imaging Report ---
CHEST SINGLE (PORTABLE), 12/13/2017 5:32 AM Technique: CHEST SINGLE (PORTABLE) Comparison: previous day Clinical history: \S\FU PNEUMONIA Findings: See Impression. Bilateral breast implants. Impression: 1. Lines/Tubes: Right central venous catheter projects at least to the cavoatrial junction. Stable ET tube 3.4 cm above the alvin, subdiaphragmatic NG-tube over the stomach. 2. Normal visualized cardiomediastinal silhouette. 3. Right basilar consolidation in keeping with history of pneumonia. Likely underlying right pleural effusion. Signed by: Dr Chelly Christensen MD on 12/13/2017 6:02 AM
[2017-12-13] MEDS: VANCOMYCIN 1GM/NS 250 ML 250 ML IV SCH (06:28)
[2017-12-13] MEDS: THIAMINE HCL INJ 100 MG in SODIUM CHLORIDE 0.9% 50ML 50 ML IV SCH (09:00)
[2017-12-13] MEDS: FILGRASTIM 480 MCG/0.8 ML VIAL SC SCH (09:00)
[2017-12-13] MEDS: PANTOPRAZOLE 40 MG 10ML VIAL IV SCH ×2 (09:00→17:00)
[2017-12-13] MEDS: CITRIC ACID/SODIUM CITRATE 30 ML UDC PO SCH ×2 (09:00→21:07)
[2017-12-13] MEDS: NICOTINE 7 MG PATCH TOP SCH (09:00)
[2017-12-13 09:41] LABS: BAND NEUTROPHILS % (MANUAL) 18 %; LYMPHOCYTES % (MANUAL) 2 % (19-48); MONOCYTES % (MANUAL) 7 % (3.4-9.0); NEUTROPHILS % (MANUAL) 71 % (40-74)
[2017-12-13 09:43] LABS: ANISOCYTOSIS SLIGHT; HYPOCHROMASIA SLIGHT; PLATELET ESTIMATE MARKEDLY DECREASED; PLATELET MORPHOLOGY COMMENT FEW GIANT; RBC MORPHOLOGY COMMENT NORMAL
[2017-12-13] MEDS ORDERED: MAGNESIUM SULF 1GRAM/DEXTROSE 100 ML IV ONE (09:45)
[2017-12-13] MEDS ORDERED: CALCIUM CHLORIDE IV ONE (09:45)
[2017-12-13] MEDS ORDERED: SODIUM CHLORIDE 0.9% IV ONE (09:45)
[2017-12-13] MEDS: D5.45%NS/KCL 20MEQ 1,000 ML IV SCH ×2 (09:49→20:00)
[2017-12-13] MEDS: ACETAMINOPHEN 325 MG/10 ML UDC NG PRN (09:49)
[2017-12-13] MEDS: POTASSIUM CHLORIDE 20MEQ/15ML UDC NG PRN (09:49)
[2017-12-13] MEDS ORDERED: SODIUM CHLORIDE 0.9% 50ML 50 ML ONE (09:57)
[2017-12-13] MEDS ORDERED: SODIUM BICARBONATE 4.2% 10 ML SYRINGE IV ONE (10:45)
[2017-12-13] MEDS ORDERED: SODIUM BICARBONATE 8.4% INJ 50 ML SYR IV ONE (11:00)
[2017-12-13 11:55] LABS: ABG HCO3 13 mmol/L (23-28); ABG PCO2 32 mmHg (41-51); ABG PO2 67 mmHg (80-105)
[2017-12-13] MEDS: PROPOFOL IV EMULSION 10MG/ML 100 ML IV PRN (14:25)
[2017-12-13] MEDS ORDERED: CEFTRIAXONE SOD 1 GM VIAL IV SCH (21:00)
[2017-12-13] MEDS: CEFTRIAXONE SOD 1 GM VIAL IV SCH (21:08)
[2017-12-13] MEDS: NOREPINEPHRINE 8 MG/D5W 250 ML 250 ML IV SCH (22:17)
[2017-12-14] VITALS (50 sets, daily range): BP systolic 98–130; BP diastolic 66–83
[2017-12-14] MEDS: ALBUTEROL SULF 0.083% NEB SOLN 3 ML NEB NEB SCH ×6 (03:00→23:00)
[2017-12-14 05:23] LABS: ANION GAP 12.3 mmol/L (8-16); BLOOD UREA NITROGEN 19 mg/dL (7-26); BUN/CREATININE RATIO 24 (6-25); CALCIUM 7.8 mg/dL (8.4-10.2); CARBON DIOXIDE 17 mmol/L (22-29); CHLORIDE 114 mmol/L (98-107); EST GLOMERULAR FILTRATION RATE > 60 ML/MIN (60-); GLUCOSE 135 mg/dL (74-118); POTASSIUM 3.3 mmol/L (3.5-5.1); SODIUM 140 mmol/L (136-145)
[2017-12-14] MEDS: D5.45%NS/KCL 20MEQ 1,000 ML IV SCH ×2 (05:35→16:23)
[2017-12-14 05:57] LABS: BASOPHILS % 0.1 % (0.0-1.0); EOSINOPHILS # (AUTO) 0.1 (0.0-0.4); HEMATOCRIT 27.9 % (34.2-44.1); LYMPHOCYTES # (AUTO) 0.3 (1.0-3.2); MEAN CORPUSCULAR HGB CONC 35.8 g/dL (31-35); MEAN CORPUSCULAR VOLUME 94.9 fL (81-99); MONOCYTES # (AUTO) 0.5 (0.2-0.8); MONOCYTES % 3.7 % (4.4-11.3); NEUTROPHILS # (AUTO) 12.2 (2.1-6.9); NEUTROPHILS % 91.1 % (38.7-80.0); RED BLOOD COUNT 2.94 x10e6/uL (3.6-5.1); RED CELL DISTRIBUTION WIDTH 15.4 % (11.7-14.4)
[2017-12-14 05:59] LABS: PLATELET COUNT 7 x10e3/uL (140-360)
--- NOTE | 2017-12-14 06:24 | Diagnostic Imaging Report ---
CHEST SINGLE (PORTABLE), 12/14/2017 7:00 AM Technique: CHEST SINGLE (PORTABLE) Comparison: previous day Clinical history: Pneumonia Findings: See Impression. Bilateral breast implants. Impression: 1. Lines/Tubes: Right central venous catheter projects to the cavoatrial junction. Stable ET tube 3 cm above the alvin, subdiaphragmatic NG-tube over the stomach. 2. Normal visualized cardiomediastinal silhouette. 3. Increasing bilateral pulmonary opacity, likely a combination of pneumonia, atelectasis and/or edema, with layering pleural fluid. Signed by: Dr Chelly Christensen MD on 12/14/2017 6:21 AM
[2017-12-14] MEDS: POTASSIUM CHLORIDE 20MEQ/15ML UDC NG PRN (06:35)
[2017-12-14 08:51] LABS: BAND NEUTROPHILS % (MANUAL) 8 %; EOSINOPHILS % (MANUAL) 1 % (0-7); LYMPHOCYTES % (MANUAL) 1 % (19-48); MONOCYTES % (MANUAL) 2 % (3.4-9.0); NEUTROPHILS % (MANUAL) 88 % (40-74); PLATELET ESTIMATE MARKEDLY DECREASED; PLATELET MORPHOLOGY COMMENT NORMAL
[2017-12-14 08:52] LABS: RBC MORPHOLOGY COMMENT NORMAL
[2017-12-14 09:05] LABS: INR 1.15; PROTHROMBIN TIME 13.8 seconds (11.9-14.5)
[2017-12-14 09:06] LABS: PARTIAL THROMBOPLASTIN TIME 40.6 seconds (23.8-35.5)
[2017-12-14] MEDS: PANTOPRAZOLE 40 MG 10ML VIAL IV SCH ×2 (09:18→17:06)
[2017-12-14] MEDS: NICOTINE 7 MG PATCH TOP SCH ×2 (09:19→09:30)
[2017-12-14] MEDS: CITRIC ACID/SODIUM CITRATE 30 ML UDC PO SCH ×2 (09:19→20:27)
[2017-12-14] MEDS ORDERED: FUROSEMIDE INJ 10 MG/ML 2 ML VIAL IV ONE (09:30)
[2017-12-14] MEDS: THIAMINE HCL INJ 100 MG in SODIUM CHLORIDE 0.9% 50ML 50 ML IV SCH (11:05)
[2017-12-14] MEDS: CEFTRIAXONE SOD 1 GM VIAL IV SCH ×2 (11:06→22:27)
[2017-12-14] MEDS: NOREPINEPHRINE 8 MG/D5W 250 ML 250 ML IV SCH (17:00)
--- NOTE | 2017-12-14 18:29 | Diagnostic Imaging Report ---
PROCEDURE:ABDOMINAL ULTRASOUND COMPARISON:None. INDICATIONS: Liver/spleen TECHNIQUE: Transverse and longitudinal images of the upper abdomen were obtained. FINDINGS: Liver: Size: 15.6 cm in the right midclavicular line, normal Appearance: Increased echogenicity, smooth contour Mass: No focal masses Spleen: Size: 8.8 cm in length, normal Echogenicity: Normal Mass: No focal masses Gallbladder: Stones/Sludge: None Appearance: No wall thickening, pericholecystic fluid or hydrops. Sonographic Mayfield's Sign: Negative Bile Ducts: Intrahepatic Ducts: No dilatation Extrahepatic Ducts: Common bile duct measures 0.3 cm, no dilatation Pancreas: Visualized portions of the neck and proximal body are normal. Right Kidney: Size: 11.1 cm Echogenicity: Normal Collecting System: No hydronephrosis Stone: None Cyst/Mass: None Left Kidney: Size: 12 cm Echogenicity: Normal Collecting System: No hydronephrosis Stone: None Cyst/Mass: None Vessels: Aorta: Visualized portions are normal Inferior Vena Cava: Visualized portions and normal Main Portal Vein: 1 cm, normal size with hepatopetal flow. Free Fluid: Trace perihepatic and pericholecystic free fluid. Partially visualized trace right pleural effusion. IMPRESSION: 1. Increased liver echogenicity suggestive of hepatocellular dysfunction such as hepatic steatosis. 2. Trace ascites and right pleural effusion. Dictated by: Joe Gustafson M.D. on 12/14/2017 at 18:34 Electronically approved by: Joe Gustafson M.D. on 12/14/2017 at 18:34
--- NOTE | 2017-12-14 18:42 | Diagnostic Imaging Report ---
PROCEDURE:US CHEST (INCL MEDIASTINUM) COMPARISON:US chest 12/12/2017. INDICATIONS:pleural effusion FINDINGS: Trace bilateral pleural effusions. CONCLUSION: Trace bilateral pleural effusions. Dictated by: Joe Gustafson M.D. on 12/14/2017 at 18:47 Electronically approved by: Joe Gustafson M.D. on 12/14/2017 at 18:47
[2017-12-14] MEDS: PROPOFOL IV EMULSION 10MG/ML 100 ML IV PRN (19:25)
[2017-12-15] VITALS (85 sets, daily range): BP systolic 94–162; BP diastolic 64–89
[2017-12-15] MEDS: D5.45%NS/KCL 20MEQ 1,000 ML IV SCH ×3 (02:33→22:28)
[2017-12-15] MEDS: ALBUTEROL SULF 0.083% NEB SOLN 3 ML NEB NEB SCH ×6 (03:00→23:00)
[2017-12-15 04:37] LABS: BASOPHILS % 0.1 % (0.0-1.0); EOSINOPHILS # (AUTO) 0.1 (0.0-0.4); EOSINOPHILS % 0.6 % (0.0-6.0); HEMATOCRIT 25.4 % (34.2-44.1); LYMPHOCYTES # (AUTO) 0.4 (1.0-3.2); LYMPHOCYTES % 2.9 % (18.0-39.1); MEAN CORPUSCULAR HEMOGLOBIN 33.6 pg (28-32); MEAN CORPUSCULAR HGB CONC 35.4 g/dL (31-35); MEAN CORPUSCULAR VOLUME 94.8 fL (81-99); MONOCYTES # (AUTO) 0.5 (0.2-0.8); MONOCYTES % 4.1 % (4.4-11.3); NEUTROPHILS # (AUTO) 11.8 (2.1-6.9); NEUTROPHILS % 90.9 % (38.7-80.0); RED BLOOD COUNT 2.68 x10e6/uL (3.6-5.1); RED CELL DISTRIBUTION WIDTH 16.2 % (11.7-14.4)
[2017-12-15 04:39] LABS: PLATELET COUNT 31 x10e3/uL (140-360)
[2017-12-15 04:48] LABS: INR 1.1; PARTIAL THROMBOPLASTIN TIME 34.6 seconds (23.8-35.5); PROTHROMBIN TIME 13.4 seconds (11.9-14.5)
[2017-12-15 04:53] LABS: ANION GAP 12.5 mmol/L (8-16); BLOOD UREA NITROGEN 20 mg/dL (7-26); BUN/CREATININE RATIO 26 (6-25); CALCIUM 8.1 mg/dL (8.4-10.2); CARBON DIOXIDE 21 mmol/L (22-29); CHLORIDE 110 mmol/L (98-107); CREATININE, SERUM 0.78 mg/dL (0.57-1.11); EST GLOMERULAR FILTRATION RATE > 60 ML/MIN (60-); GLUCOSE 140 mg/dL (74-118); POTASSIUM 3.5 mmol/L (3.5-5.1); SODIUM 140 mmol/L (136-145)
[2017-12-15 06:22] LABS: BAND NEUTROPHILS % (MANUAL) 10 %; LYMPHOCYTES % (MANUAL) 2 % (19-48); MONOCYTES % (MANUAL) 3 % (3.4-9.0); NEUTROPHILS % (MANUAL) 85 % (40-74); RBC MORPHOLOGY COMMENT NORMAL
[2017-12-15 06:23] LABS: PLATELET ESTIMATE MODERATELY DECREASED; PLATELET MORPHOLOGY COMMENT NORMAL
--- NOTE | 2017-12-15 06:48 | Diagnostic Imaging Report ---
CHEST SINGLE (PORTABLE), 12/15/2017 7:00 AM Technique: CHEST SINGLE (PORTABLE) Comparison: previous day Clinical history: Pneumonia Findings: See Impression. Bilateral breast implants. Impression: 1. Lines/Tubes: Right central venous catheter projects to the cavoatrial junction. Stable ET tube 2.5 cm above the alvin, subdiaphragmatic NG-tube over the stomach. 2. Normal visualized cardiomediastinal silhouette. 3. Stable bilateral pulmonary opacity, possibly a combination of pneumonia, atelectasis and/or edema, with pleural fluid. Signed by: Dr Chelly Christensen MD on 12/15/2017 6:45 AM
[2017-12-15] MEDS: CEFTRIAXONE SOD 1 GM VIAL IV SCH ×2 (09:59→21:50)
[2017-12-15] MEDS: CITRIC ACID/SODIUM CITRATE 30 ML UDC PO SCH ×2 (09:59→21:50)
[2017-12-15] MEDS: PANTOPRAZOLE 40 MG 10ML VIAL IV SCH ×2 (09:59→18:51)
[2017-12-15] MEDS: THIAMINE HCL INJ 100 MG in SODIUM CHLORIDE 0.9% 50ML 50 ML IV SCH (09:59)
[2017-12-15 10:33] LABS: ABG HCO3 22 mmol/L (23-28); ABG PCO2 36 mmHg (41-51); ABG PH 7.38 (7.31-7.41); ABG PO2 66 mmHg (80-105)
[2017-12-15] MEDS: PROPOFOL IV EMULSION 10MG/ML 100 ML IV PRN (12:27)
[2017-12-15] MEDS ORDERED: ALBUMIN 25% 12.5GM 0.25 GM/ML BTL IV ONE (13:45)
[2017-12-15] MEDS ORDERED: SODIUM BICARBONATE 650 MG TAB PO SCH (14:00)
[2017-12-15] MEDS ORDERED: POTASSIUM CHLORIDE 20 MEQ TAB CR PO ONE (14:00)
[2017-12-15] MEDS ORDERED: ALBUMIN IV ONE (14:30)
[2017-12-15] MEDS: NOREPINEPHRINE 8 MG/D5W 250 ML 250 ML IV SCH (17:00)
[2017-12-15] MEDS ORDERED: POTASSIUM CHLORIDE 20MEQ/15ML UDC PO ONE (18:00)
[2017-12-15] MEDS: SODIUM BICARBONATE 650 MG TAB PO SCH ×2 (18:51→21:50)
[2017-12-15] MEDS ORDERED: SODIUM BICARBONATE 650 MG TAB ONE (21:47)
[2017-12-16] VITALS (51 sets, daily range): BP systolic 87–158; BP diastolic 56–110
[2017-12-16] MEDS: ALBUTEROL SULF 0.083% NEB SOLN 3 ML NEB NEB SCH ×6 (03:00→23:25)
[2017-12-16 04:46] LABS: BASOPHILS % 0.4 % (0.0-1.0); EOSINOPHILS # (AUTO) 0.1 (0.0-0.4); EOSINOPHILS % 0.7 % (0.0-6.0); HEMOGLOBIN 7.8 g/dL (12.0-16.0); LYMPHOCYTES # (AUTO) 0.4 (1.0-3.2); LYMPHOCYTES % 3.7 % (18.0-39.1); MEAN CORPUSCULAR HEMOGLOBIN 33.5 pg (28-32); MEAN CORPUSCULAR HGB CONC 34.7 g/dL (31-35); MEAN CORPUSCULAR VOLUME 96.6 fL (81-99); MONOCYTES # (AUTO) 0.2 (0.2-0.8); MONOCYTES % 1.5 % (4.4-11.3); NEUTROPHILS # (AUTO) 10.1 (2.1-6.9); NEUTROPHILS % 91.9 % (38.7-80.0); RED BLOOD COUNT 2.33 x10e6/uL (3.6-5.1); RED CELL DISTRIBUTION WIDTH 16.7 % (11.7-14.4)
[2017-12-16 04:47] LABS: HEMATOCRIT 22.5 % (34.2-44.1)
[2017-12-16 04:48] LABS: PLATELET COUNT 13 x10e3/uL (140-360)
[2017-12-16 05:09] LABS: ALANINE AMINOTRANSFERASE 29 IU/L (0-55); ALBUMIN 1.8 g/dL (3.5-5.0); ALBUMIN/GLOBULIN RATIO 0.7 (0.8-2.0); ALKALINE PHOSPHATASE 109 IU/L (40-150); ANION GAP 12.4 mmol/L (8-16); BLOOD UREA NITROGEN 16 mg/dL (7-26); BUN/CREATININE RATIO 23 (6-25); CALCIUM 8.6 mg/dL (8.4-10.2); CARBON DIOXIDE 24 mmol/L (22-29); CHLORIDE 111 mmol/L (98-107); CREATININE, SERUM 0.71 mg/dL (0.57-1.11); EST GLOMERULAR FILTRATION RATE > 60 ML/MIN (60-); GLUCOSE 172 mg/dL (74-118); POTASSIUM 3.4 mmol/L (3.5-5.1); SODIUM 144 mmol/L (136-145)
--- NOTE | 2017-12-16 07:10 | Diagnostic Imaging Report ---
EXAMINATION: CHEST SINGLE (PORTABLE) COMPARISON: 0628 hours INDICATION: Tube placement DISCUSSION: Frontal view of the chest obtained at 0645 hours. HEART AND MEDIASTINUM: The cardiomediastinal silhouette is stable. LINES: Endotracheal tube terminates 3 to 4 cm above the alvin. Right PICC line terminates in the SVC. Enteric tube extends past the diaphragm. LUNGS: Lung volumes are lower. Widespread alveolar airspace opacities are redemonstrated without significant change. PLEURA: Right pleural effusion is stable. Left pleural effusion is suspected. No pneumothorax BONES AND SOFT TISSUES: No focal osseous lesion. The soft tissues are stable with the presence of bilateral breast implants. IMPRESSION: 1. Support devices as described above. 2. No change in alveolar infiltrates or right pleural effusion. No new cardiopulmonary findings. Signed by: Dr. Jessica Agustin MD on 12/16/2017 7:07 AM
[2017-12-16 07:14] LABS: BAND NEUTROPHILS % (MANUAL) 38 %; EOSINOPHILS % (MANUAL) 1 % (0-7); LYMPHOCYTES % (MANUAL) 5 % (19-48); METAMYELOCYTES % (MANUAL) 1 % (0-0); MONOCYTES % (MANUAL) 3 % (3.4-9.0); NEUTROPHILS % (MANUAL) 52 % (40-74)
[2017-12-16 07:15] LABS: PLATELET ESTIMATE MARKEDLY DECREASED; PLATELET MORPHOLOGY COMMENT NORMAL; RBC MORPHOLOGY COMMENT NORMAL
[2017-12-16] MEDS: D5.45%NS/KCL 20MEQ 1,000 ML IV SCH (08:00)
[2017-12-16] MEDS: CITRIC ACID/SODIUM CITRATE 30 ML UDC PO SCH ×2 (08:49→20:50)
[2017-12-16] MEDS: PANTOPRAZOLE 40 MG 10ML VIAL IV SCH ×2 (08:49→19:22)
[2017-12-16] MEDS: NICOTINE 7 MG PATCH TOP SCH (08:52)
[2017-12-16] MEDS: THIAMINE HCL INJ 100 MG in SODIUM CHLORIDE 0.9% 50ML 50 ML IV SCH (09:20)
[2017-12-16 09:29] LABS: ABG PCO2 37 mmHg (41-51); ABG PH 7.43 (7.31-7.41); ABG PO2 66 mmHg (80-105)
[2017-12-16 09:30] LABS: ABG HCO3 25 mmol/L (23-28)
[2017-12-16] MEDS ORDERED: SODIUM CHLORIDE 0.9% 250ML 250 ML ONE ×2 (10:41→15:14)
[2017-12-16] MEDS ORDERED: D5.45%NS/KCL 20MEQ 1,000 ML IV SCH (12:45)
[2017-12-16] MEDS: FUROSEMIDE INJ 10 MG/ML 4 ML VIAL IV SCH ×2 (13:30→20:49)
[2017-12-16] MEDS ORDERED: POTASSIUM CHLORIDE 10MEQ/100ML 100 ML IV ONE (14:30)
[2017-12-16] MEDS ORDERED: METOLAZONE 5 MG TAB PO ONE (14:45)
[2017-12-16] MEDS ORDERED: POTASSIUM CHLORIDE 20 MEQ TAB CR PO ONE (15:00)
[2017-12-16] MEDS: CEFTRIAXONE SOD 1 GM VIAL IV SCH ×2 (15:11→21:48)
[2017-12-16] MEDS: VANCOMYCIN 1GM/NS 250 ML 250 ML IV SCH (15:30)
[2017-12-16] MEDS: PIPER-TAZ 3.375 GM 50 ML IV SCH ×2 (16:00→20:50)
--- NOTE | 2017-12-16 16:27 | Progress Note ---
DATE: December 16, 2017 Today Ms. Traore's pulmonary status got worse. I was contacted by her critical care doctor. The patient is intubated and sedated, but apparently her vent setting needed more demand and there was concern that she probably aspirated. PHYSICAL EXAMINATION GENERAL: She is intubated today. VITAL SIGNS: Stable, currently afebrile. HEENT: Not icteric. Oral intubation. NECK: Supple. CHEST: A few rhonchi. HEART: S1 and S2, no murmur. ABDOMEN: Soft. Bowel sounds present. No tenderness. EXTREMITIES: No edema. IMPRESSION: 1. Concerned about aspiration. Will broaden her coverage to Zosyn and vancomycin. 2. Sepsis on admission. 3. Aspiration pneumonia. 4. Bacteremia with Streptococcus. 5. Alcoholism. 6. Respiratory failure. 7. Will follow. Job#: [id number] GH
[2017-12-16] MEDS: NOREPINEPHRINE 8 MG/D5W 250 ML 250 ML IV SCH (17:00)
[2017-12-17] VITALS (50 sets, daily range): BP systolic 92–145; BP diastolic 50–81
[2017-12-17] MEDS: PROPOFOL IV EMULSION 10MG/ML 100 ML IV PRN ×4 (00:47→21:36)
[2017-12-17] MEDS: VANCOMYCIN 1GM/NS 250 ML 250 ML IV SCH ×2 (01:31→14:00)
[2017-12-17] MEDS: ALBUTEROL SULF 0.083% NEB SOLN 3 ML NEB NEB SCH ×6 (03:01→23:00)
[2017-12-17 05:34] LABS: BASOPHILS % 0.3 % (0.0-1.0); EOSINOPHILS # (AUTO) 0.1 (0.0-0.4); EOSINOPHILS % 0.7 % (0.0-6.0); HEMOGLOBIN 7.8 g/dL (12.0-16.0); LYMPHOCYTES # (AUTO) 0.7 (1.0-3.2); LYMPHOCYTES % 4.6 % (18.0-39.1); MEAN CORPUSCULAR HEMOGLOBIN 33.8 pg (28-32); MEAN CORPUSCULAR HGB CONC 35.3 g/dL (31-35); MEAN CORPUSCULAR VOLUME 95.7 fL (81-99); MONOCYTES # (AUTO) 0.2 (0.2-0.8); MONOCYTES % 1.2 % (4.4-11.3); NEUTROPHILS % 90.9 % (38.7-80.0); PLATELET COUNT 56 x10e3/uL (140-360); RED BLOOD COUNT 2.31 x10e6/uL (3.6-5.1); RED CELL DISTRIBUTION WIDTH 16.7 % (11.7-14.4)
[2017-12-17] MEDS: PIPER-TAZ 3.375 GM 50 ML IV SCH ×3 (05:47→21:17)
[2017-12-17 05:48] LABS: HEMATOCRIT 22.1 % (34.2-44.1)
[2017-12-17 06:02] LABS: ALANINE AMINOTRANSFERASE 20 IU/L (0-55); ALBUMIN 1.5 g/dL (3.5-5.0); ALBUMIN/GLOBULIN RATIO 0.5 (0.8-2.0); ALKALINE PHOSPHATASE 115 IU/L (40-150); BLOOD UREA NITROGEN 24 mg/dL (7-26); BUN/CREATININE RATIO 32 (6-25); CALCIUM 9.1 mg/dL (8.4-10.2); CARBON DIOXIDE 34 mmol/L (22-29); CHLORIDE 100 mmol/L (98-107); CREATININE, SERUM 0.75 mg/dL (0.57-1.11); EST GLOMERULAR FILTRATION RATE > 60 ML/MIN (60-); GLUCOSE 137 mg/dL (74-118); SODIUM 146 mmol/L (136-145)
--- NOTE | 2017-12-17 06:48 | Diagnostic Imaging Report ---
CHEST SINGLE (PORTABLE), 12/17/2017 5:24 AM Technique: CHEST SINGLE (PORTABLE) Comparison: previous day Clinical history: Intubated Findings: See Impression. Bilateral breast implants. Impression: 1. Lines/Tubes: Stable right PICC at the cavoatrial junction, ET tube 1.8 cm above the alvin and subdiaphragmatic NG tube. 2. No significant change in extensive bilateral airspace opacities and suspected underlying effusions. 3. Normal visualized cardiomediastinal silhouette.. Signed by: Dr Chelly Christensen MD on 12/17/2017 6:45 AM
[2017-12-17 07:23] LABS: BAND NEUTROPHILS % (MANUAL) 6 %; EOSINOPHILS % (MANUAL) 1 % (0-7); LYMPHOCYTES % (MANUAL) 3 % (19-48); MONOCYTES % (MANUAL) 1 % (3.4-9.0); NEUTROPHILS % (MANUAL) 89 % (40-74)
[2017-12-17 07:24] LABS: ANISOCYTOSIS SLIGHT; HYPOCHROMASIA MODERATE; PLATELET ESTIMATE MARKEDLY DECREASED; PLATELET MORPHOLOGY COMMENT FEW GIANT; POIKILOCYTOSIS SLIGHT; RBC MORPHOLOGY COMMENT NORMAL
[2017-12-17 07:25] LABS: TARGET CELLS FEW
[2017-12-17] MEDS ORDERED: SIMETHICONE 80 MG CHEW PO PRN (09:00)
[2017-12-17] MEDS ORDERED: MAGNESIUM SULFATE 2GM/50ML 100 ML IV ONE (09:00)
[2017-12-17] MEDS ORDERED: SODIUM CHLORIDE 0.9% 250ML 250 ML IV ONE (09:45)
[2017-12-17] MEDS: NICOTINE 7 MG PATCH TOP SCH (11:05)
[2017-12-17] MEDS: CITRIC ACID/SODIUM CITRATE 30 ML UDC PO SCH ×2 (11:05→21:00)
[2017-12-17] MEDS: THIAMINE HCL INJ 100 MG in SODIUM CHLORIDE 0.9% 50ML 50 ML IV SCH (11:05)
[2017-12-17] MEDS: PANTOPRAZOLE 40 MG 10ML VIAL IV SCH ×3 (11:05→21:17)
[2017-12-17] MEDS: FUROSEMIDE INJ 10 MG/ML 4 ML VIAL IV SCH ×2 (11:05→21:16)
[2017-12-17] MEDS ORDERED: POTASSIUM CHLORIDE 20MEQ/100ML 100 ML ONE (11:06)
[2017-12-17] MEDS: POTASSIUM CHLORIDE 20MEQ/15ML UDC NG PRN (11:07)
[2017-12-17] MEDS: LORAZEPAM 0.5 MG TAB PO PRN (11:29)
[2017-12-17] MEDS: ACETAMINOPHEN 325 MG/10 ML UDC NG PRN (11:29)
[2017-12-17] MEDS ORDERED: FUROSEMIDE INJ 10 MG/ML 2 ML VIAL IV ONE (12:00)
[2017-12-17] MEDS ORDERED: POTASSIUM CHLORIDE 20MEQ/100ML 200 ML IV ONE (13:30)
[2017-12-17] MEDS ORDERED: SODIUM CHLORIDE 0.9% 250ML 250 ML ONE (13:57)
[2017-12-17] MEDS ORDERED: FUROSEMIDE INJ 10 MG/ML 2 ML VIAL ONE (16:49)
[2017-12-17] MEDS: NOREPINEPHRINE 8 MG/D5W 250 ML 250 ML IV SCH (17:00)
--- NOTE | 2017-12-17 17:59 | Diagnostic Imaging Report ---
Exam: Ultrasound of chest Clinical history: Technique: Using a curved array transducer, real-time imaging of the chest of () is in the thorax was performed with images saved in sagittal and transverse planes. Discussion: There is trace pleural effusion bilaterally. Impression: Trace pleural effusion bilaterally. Signed by: Dr. Yovanny Hines M.D. on 12/17/2017 5:56 PM
[2017-12-17 18:50] LABS: BASOPHILS # (AUTO) 0.1 (0.0-0.1); BASOPHILS % 0.7 % (0.0-1.0); EOSINOPHILS # (AUTO) 0.1 (0.0-0.4); EOSINOPHILS % 0.7 % (0.0-6.0); HEMATOCRIT 25.5 % (34.2-44.1); HEMOGLOBIN 9.1 g/dL (12.0-16.0); LYMPHOCYTES # (AUTO) 0.8 (1.0-3.2); LYMPHOCYTES % 5.2 % (18.0-39.1); MEAN CORPUSCULAR HEMOGLOBIN 33.3 pg (28-32); MEAN CORPUSCULAR HGB CONC 35.7 g/dL (31-35); MEAN CORPUSCULAR VOLUME 93.4 fL (81-99); MONOCYTES # (AUTO) 0.2 (0.2-0.8); MONOCYTES % 1.2 % (4.4-11.3); NEUTROPHILS # (AUTO) 13.4 (2.1-6.9); NEUTROPHILS % 88.9 % (38.7-80.0); RED BLOOD COUNT 2.73 x10e6/uL (3.6-5.1); RED CELL DISTRIBUTION WIDTH 16.8 % (11.7-14.4)
[2017-12-17 18:52] LABS: PLATELET COUNT 41 x10e3/uL (140-360)
[2017-12-17 19:05] LABS: ANION GAP 15.4 mmol/L (8-16); BLOOD UREA NITROGEN 29 mg/dL (7-26); BUN/CREATININE RATIO 36 (6-25); CALCIUM 9.3 mg/dL (8.4-10.2); CARBON DIOXIDE 37 mmol/L (22-29); CHLORIDE 95 mmol/L (98-107); CREATININE, SERUM 0.81 mg/dL (0.57-1.11); EST GLOMERULAR FILTRATION RATE > 60 ML/MIN (60-); GLUCOSE 113 mg/dL (74-118); MAGNESIUM 1.8 MG/DL (1.3-2.1); POTASSIUM 3.4 mmol/L (3.5-5.1); SODIUM 144 mmol/L (136-145)
[2017-12-17 19:06] LABS: VANCOMYCIN,TROUGH 19.7 ug/mL (5.0-10.0)
[2017-12-17] MEDS: FENTANYL CITRATE INJ 2,000 MCG in SODIUM CHLORIDE 0.9% 250ML 210 ML IV PRN (21:36)
[2017-12-18] VITALS (53 sets, daily range): BP systolic 77–129; BP diastolic 36–96
[2017-12-18] MEDS: PROPOFOL IV EMULSION 10MG/ML 100 ML IV PRN ×2 (02:43→19:00)
[2017-12-18] MEDS: ALBUTEROL SULF 0.083% NEB SOLN 3 ML NEB NEB SCH ×6 (02:49→23:00)
[2017-12-18] MEDS ORDERED: SODIUM CHLORIDE 0.9% 250ML 250 ML ONE (03:45)
[2017-12-18] MEDS: PIPER-TAZ 3.375 GM 50 ML IV SCH ×3 (04:03→21:11)
[2017-12-18 05:09] LABS: BASOPHILS # (AUTO) 0.1 (0.0-0.1); BASOPHILS % 0.4 % (0.0-1.0); EOSINOPHILS # (AUTO) 0.1 (0.0-0.4); HEMATOCRIT 24.6 % (34.2-44.1); HEMOGLOBIN 8.7 g/dL (12.0-16.0); LYMPHOCYTES # (AUTO) 0.7 (1.0-3.2); LYMPHOCYTES % 5.1 % (18.0-39.1); MEAN CORPUSCULAR HEMOGLOBIN 33.1 pg (28-32); MEAN CORPUSCULAR HGB CONC 35.4 g/dL (31-35); MEAN CORPUSCULAR VOLUME 93.5 fL (81-99); MONOCYTES # (AUTO) 0.3 (0.2-0.8); MONOCYTES % 1.8 % (4.4-11.3); NEUTROPHILS # (AUTO) 12.6 (2.1-6.9); NEUTROPHILS % 89.3 % (38.7-80.0); RED BLOOD COUNT 2.63 x10e6/uL (3.6-5.1); RED CELL DISTRIBUTION WIDTH 17.2 % (11.7-14.4)
[2017-12-18 05:21] LABS: PLATELET COUNT 45 x10e3/uL (140-360)
[2017-12-18 05:45] LABS: ANION GAP 17.3 mmol/L (8-16); BLOOD UREA NITROGEN 32 mg/dL (7-26); BUN/CREATININE RATIO 40 (6-25); CALCIUM 9.5 mg/dL (8.4-10.2); CARBON DIOXIDE 39 mmol/L (22-29); CHLORIDE 94 mmol/L (98-107); CREATININE, SERUM 0.81 mg/dL (0.57-1.11); EST GLOMERULAR FILTRATION RATE > 60 ML/MIN (60-); GLUCOSE 86 mg/dL (74-118); POTASSIUM 3.3 mmol/L (3.5-5.1); SODIUM 147 mmol/L (136-145)
--- NOTE | 2017-12-18 06:15 | Diagnostic Imaging Report ---
EXAM: CHEST SINGLE (PORTABLE), AP 1 view INDICATION: Intubated COMPARISON: AP view of the chest December 17, 2017 FINDINGS: LINES/TUBES: The endotracheal tube terminates 3.5 cm above the alvin. Right approach PICC terminates in expected location of the atriocaval junction. Nasal/orogastric tube terminates in the expected location of the body of the stomach LUNGS: Stable diffuse bilateral airspace opacities PLEURA: Suspected small bilateral pleural effusions. HEART AND MEDIASTINUM: Normal size and contour. BONES AND SOFT TISSUES: No acute findings. IMPRESSION: No interval change in appearance of the chest with diffuse bilateral airspace opacities. Signed by: Dr. Hortencia Juan M.D. on 12/18/2017 6:12 AM
[2017-12-18 07:05] LABS: BAND NEUTROPHILS % (MANUAL) 5 %; EOSINOPHILS % (MANUAL) 1 % (0-7); LYMPHOCYTES % (MANUAL) 4 % (19-48); MYELOCYTES % (MANUAL) 1 % (0-0); NEUTROPHILS % (MANUAL) 86 % (40-74); NUCLEATED RED BLOOD CELLS 1; PLATELET ESTIMATE MARKEDLY DECREASED; TARGET CELLS FEW
[2017-12-18 07:06] LABS: PLATELET MORPHOLOGY COMMENT NORMAL
[2017-12-18 07:07] LABS: ANISOCYTOSIS SLIGHT; HYPOCHROMASIA SLIGHT; POIKILOCYTOSIS SLIGHT; RBC MORPHOLOGY COMMENT NORMAL
[2017-12-18] MEDS: VANCOMYCIN 1GM/NS 250 ML 250 ML IV SCH (09:34)
[2017-12-18] MEDS: PANTOPRAZOLE 40 MG 10ML VIAL IV SCH ×2 (09:34→21:11)
[2017-12-18] MEDS: NICOTINE 7 MG PATCH TOP SCH (09:34)
[2017-12-18] MEDS: THIAMINE HCL INJ 100 MG in SODIUM CHLORIDE 0.9% 50ML 50 ML IV SCH (09:34)
[2017-12-18] MEDS: POTASSIUM CHLORIDE 20MEQ/15ML UDC NG PRN (09:35)
[2017-12-18] MEDS: ACETAMINOPHEN 325 MG/10 ML UDC NG PRN (09:35)
[2017-12-18 11:26] LABS: ABG HCO3 42 mmol/L (23-28); ABG PCO2 49 mmHg (41-51); ABG PH 7.54 (7.31-7.41); ABG PO2 57 mmHg (80-105)
[2017-12-18] MEDS: LORAZEPAM 0.5 MG TAB PO PRN (13:13)
[2017-12-18] MEDS: VANCOMYCIN 250MG/5ML ORAL SOLN NG SCH ×3 (13:13→23:58)
[2017-12-18 14:33] LABS: OCCULT BLOOD STOOL POSITIVE (NEGATIVE)
[2017-12-18] MEDS: NOREPINEPHRINE 8 MG/D5W 250 ML 250 ML IV SCH (17:00)
--- NOTE | 2017-12-18 18:07 | Consultation ---
DATE OF CONSULTATION: December 18, 2017 GI CONSULT NOTE CONSULTING PHYSICIAN: Dr. Josh Ansari. REASON FOR CONSULTATION: Evaluation for possible EGD/PEG. HISTORY OF PRESENT ILLNESS: A 51-year-old female whose currently intubated on mechanical ventilator, getting enteral feeding through the nasogastric tube. She is also on sedation, therefore, I cannot derive any history from the patient. Most of my information is derived from the medical chart. She got admitted. She has history of alcoholic liver cirrhosis. She got admitted with episodes of nausea and vomiting after excessive consumption of alcohol. She was noted to have aspiration pneumonia. She was noted to be respiratory failure requiring mechanical ventilation. She was found to have severe aspiration pneumonia. Currently being treated with broad-spectrum intravenous antibiotic. She has been on ventilator for close to a week. She is difficult to extubate, not meeting the weaning parameters. It is likely that she may end up getting tracheostomy. GI has been consulted to evaluate her for possible EGD/PEG placement. REVIEW OF SYSTEMS: Unobtainable. PAST MEDICAL HISTORY: Alcoholic liver cirrhosis, sacral decubitus ulcer. Previous aspiration pneumonias. PAST SURGICAL HISTORY: Eye surgery for amblyopia in childhood. FAMILY HISTORY: Noncontributory. SOCIAL HISTORY: Alcohol dependence. Not sure if she is a smoker. Also, not sure about any illicit drugs. FAMILY HISTORY: Noncontributory. ALLERGIES: NO KNOWN DRUG ALLERGIES. HOME MEDICATIONS: Meclizine and nicotine dermal patch. PHYSICAL EXAMINATION: VITALS: Temperature 98.3, pulse 91, respirations 20. Blood pressure 88/52 to 92/55, oxygen saturation 94% on current ventilator setting. GENERAL: Intubated, sedated and on mechanical ventilator. HEENT: Moist mucous membrane. Anicteric sclerae. NG is in place. Oral mucosa is moist. CVS: S1 and S2 regular. LUNGS: Lungs bilateral scattered rales. Rales are more prominent on the right side. ABDOMEN: Soft, nondistended, nontender, no palpable mass or hernia. Positive bowel sounds. Shifting dullness not digitally appreciable. EXTREMITIES: Warm. No leg edema. LABORATORY DATA: WBC 14.11, hemoglobin 8.7, hematocrit 24.6, MCV 93.5, platelet count of 45, PT 13.4, INR 1.10, PTT 34.6, sodium 147, potassium 3.3, chloride 94, bicarb 39, BUN 32, creatinine 0.81, glucose 86. Liver enzymes on 12/17/2017 showed a total bilirubin 0.5, AST 28 ALT, 20 and alkaline phosphatase 115. Ultrasound of the abdomen done on 12/14/2017 showed increased liver echogenicity suggestive of hepatocellular dysfunction such as hepatic steatosis, trace ascites and right pleural effusion. Chest x-ray on admission showed right basilar consolidation, right pleural effusion suggestive of multifocal pneumonia. IMPRESSION: 1. Acute respiratory failure secondary to aspiration pneumonia. 2. Alcohol dependence, alcoholic liver cirrhosis with trace ascites. 3. Portal hypertension that is causing thrombocytopenia. 4. Decubitus ulcer. PLAN: Continue present medical management. Continue broad-spectrum intravenous antibiotic. Will discontinue nasogastric feedings, check residuals. If residual is high, such as more than 2 mL, then rate needs to be adjusted. Notify GI for high residuals. NG feeding can be continued. Due to presence of ascites, patient will not be a candidate for EGD and PEG. As far as putting gastrostomy tube endoscopically in the setting of ascites, will run the risk of gastrostomy site leak. I thank Dr. Ansari for allowing me to participate in the care of this patient. Job#: [id number]
[2017-12-19] VITALS (53 sets, daily range): BP systolic 108–158; BP diastolic 65–102
[2017-12-19] MEDS: PROPOFOL IV EMULSION 10MG/ML 100 ML IV PRN ×2 (01:17→07:09)
[2017-12-19] MEDS: ALBUTEROL SULF 0.083% NEB SOLN 3 ML NEB NEB SCH ×6 (03:00→23:00)
[2017-12-19] MEDS: PIPER-TAZ 3.375 GM 50 ML IV SCH ×3 (04:52→20:58)
[2017-12-19] MEDS: VANCOMYCIN 250MG/5ML ORAL SOLN NG SCH (05:10)
--- NOTE | 2017-12-19 08:11 | Consultation ---
DATE OF CONSULTATION: December 19, 2017 HOSPITAL CONSULTATION HISTORY OF PRESENT ILLNESS: I was kindly asked to see this 51-year-old woman for evaluation of tracheostomy tube placement. The patient has required prolonged ventilator support and it is anticipated that she will continue to need ventilator support. Her history of present illness, past medical history and past surgical history was reviewed in detail in the chart. PHYSICAL EXAMINATION: There is no abnormal neck anatomy noted. The patient is intubated on the ventilator. ASSESSMENT: Respiratory failure. PLAN: Tracheostomy. Job#: [id number] GALEN
[2017-12-19 08:42] LABS: C DIFFICILE TOXIN A&B AMP PROB NEGATIVE (NEGATIVE)
[2017-12-19] MEDS: THIAMINE HCL INJ 100 MG in SODIUM CHLORIDE 0.9% 50ML 50 ML IV SCH (09:00)
--- NOTE | 2017-12-19 11:24 | Diagnostic Imaging Report ---
PROCEDURE: A single AP view of the chest. COMPARISON: None. INDICATIONS: INTUBATED FINDINGS: LINES/TUBES: The endotracheal tube terminates 4.5 cm above the alvin. Right sided PICC terminating in the expected location of the cavoatrial junction. Enteric tube terminates in the expected location of the body of the stomach. LUNGS: Slightly increased diffuse bilateral airspace opacities. PLEURA: Likely small bilateral pleural effusions. HEART AND MEDIASTINUM: The cardiomediastinal silhouette is unchanged. BONES AND SOFT TISSUES: No acute findings. IMPRESSION: Slight interval increase of bilateral diffuse airspace opacities, which may represent any combination of multifocal pneumonia, ARDS, and/or pulmonary edema. Dictated by: MARILYNN ORTEGA M.D. on 12/19/2017 at 11:29 Electronically approved by: MARILYNN ORTEGA M.D. on 12/19/2017 at 11:29
[2017-12-19] MEDS: NICOTINE 7 MG PATCH TOP SCH (11:45)
[2017-12-19] MEDS: PANTOPRAZOLE 40 MG 10ML VIAL IV SCH ×2 (11:45→20:57)
[2017-12-19] MEDS: VANCOMYCIN 1GM/NS 250 ML 250 ML IV SCH (12:00)
[2017-12-19 12:21] LABS: HEMATOCRIT 33.4 % (34.2-44.1); HEMOGLOBIN 11.8 g/dL (12.0-16.0); MEAN CORPUSCULAR HEMOGLOBIN 32.6 pg (28-32); MEAN CORPUSCULAR HGB CONC 35.3 g/dL (31-35); MEAN CORPUSCULAR VOLUME 92.3 fL (81-99); PLATELET COUNT 72 x10e3/uL (140-360); RED BLOOD COUNT 3.62 x10e6/uL (3.6-5.1); RED CELL DISTRIBUTION WIDTH 16.2 % (11.7-14.4)
[2017-12-19 12:40] LABS: ANION GAP 14.8 mmol/L (8-16); BLOOD UREA NITROGEN 25 mg/dL (7-26); BUN/CREATININE RATIO 37 (6-25); CALCIUM 8.5 mg/dL (8.4-10.2); CARBON DIOXIDE 31 mmol/L (22-29); CHLORIDE 99 mmol/L (98-107); CREATININE, SERUM 0.68 mg/dL (0.57-1.11); EST GLOMERULAR FILTRATION RATE > 60 ML/MIN (60-); GLUCOSE 91 mg/dL (74-118); SODIUM 142 mmol/L (136-145)
[2017-12-19 12:41] LABS: MAGNESIUM 0.9 MG/DL (1.3-2.1); POTASSIUM 2.8 mmol/L (3.5-5.1)
[2017-12-19] MEDS ORDERED: MAGNESIUM OXIDE 400 MG TAB ONE (12:46)
[2017-12-19] MEDS ORDERED: MAGNESIUM SULFATE 2GM/50ML 50 ML IV ONE (12:47)
[2017-12-19] MEDS ORDERED: MAGNESIUM SULFATE 2GM/50ML 100 ML IV ONE (13:30)
[2017-12-19] MEDS ORDERED: POTASSIUM CHLORIDE 20 MEQ TAB CR PO SCH (14:00)
[2017-12-19] MEDS: POTASSIUM CHLORIDE 20MEQ/15ML UDC NG SCH ×4 (14:00→19:30)
[2017-12-19] MEDS: NOREPINEPHRINE 8 MG/D5W 250 ML 250 ML IV SCH (17:00)
--- NOTE | 2017-12-19 19:29 | Progress Note ---
DATE: December 19, 2017 GI PROGRESS NOTE SUBJECTIVE: Patient is tolerating nasogastric feedings. She is likely going to get tracheostomy Sunday. REVIEW OF SYSTEMS: Unobtainable. INPATIENT MEDICATIONS: List reviewed as per JUL. PHYSICAL EXAMINATION VITAL SIGNS: Temperature 99, pulse 31, respiration 158/93, oxygen saturation 93% on present ventilator setting. GENERAL: Intubated but not sedated. Eyes open. Oral mucosa is moist. Anicteric sclerae. ABDOMEN: Soft, nondistended, nontender. No palpable mass or hernia. Shifting dullness digitally not appreciable. LABS: WBC has gone up to 15.76 from 14.11, hemoglobin 11.8, hematocrit 33.4, MCV 92.3, platelet count 72,000. Sodium 142, potassium 2.8, chloride 99, bicarb 31, BUN 25, creatinine 0.68. Chest x-ray, slight interval increase of the bilateral diffuse air space opacities which may represent any combination of multifocal pneumonia, ARDS and pulmonary edema. So oropharyngeal dysphagia on enteral feeding, speech and swallow evaluation has not been done. She is likely going to get a tracheostomy. PLAN: From GI standpoint, patient should undergo swallow evaluation after tracheostomy. If she fails then obviously she will need feeding gastrostomy. Given her history of cirrhosis with ascites, she is not a candidate for endoscopy gastrostomy. High risk of leak secondary to underlying ascites. Correct hypokalemia. Will continue to follow along with you. Job#: [id number]
[2017-12-19] MEDS ORDERED: SODIUM CHLORIDE 0.9% 250ML 250 ML ONE (20:54)
[2017-12-20] VITALS (51 sets, daily range): BP systolic 113–166; BP diastolic 68–119
[2017-12-20] MEDS: ALBUTEROL SULF 0.083% NEB SOLN 3 ML NEB NEB SCH ×6 (03:00→23:00)
[2017-12-20] MEDS: PIPER-TAZ 3.375 GM 50 ML IV SCH ×3 (04:25→20:58)
[2017-12-20 04:59] LABS: BASOPHILS # (AUTO) 0.1 (0.0-0.1); BASOPHILS % 0.4 % (0.0-1.0); EOSINOPHILS # (AUTO) 0.1 (0.0-0.4); EOSINOPHILS % 0.3 % (0.0-6.0); HEMATOCRIT 26.9 % (34.2-44.1); LYMPHOCYTES # (AUTO) 0.8 (1.0-3.2); LYMPHOCYTES % 3.8 % (18.0-39.1); MEAN CORPUSCULAR HEMOGLOBIN 32.4 pg (28-32); MEAN CORPUSCULAR HGB CONC 34.2 g/dL (31-35); MEAN CORPUSCULAR VOLUME 94.7 fL (81-99); MONOCYTES # (AUTO) 0.3 (0.2-0.8); MONOCYTES % 1.4 % (4.4-11.3); NEUTROPHILS # (AUTO) 18.3 (2.1-6.9); NEUTROPHILS % 87.4 % (38.7-80.0); RED BLOOD COUNT 2.84 x10e6/uL (3.6-5.1); RED CELL DISTRIBUTION WIDTH 15.9 % (11.7-14.4)
[2017-12-20 05:21] LABS: ANION GAP 13.5 mmol/L (8-16); BLOOD UREA NITROGEN 25 mg/dL (7-26); BUN/CREATININE RATIO 41 (6-25); CALCIUM 8.3 mg/dL (8.4-10.2); CARBON DIOXIDE 28 mmol/L (22-29); CHLORIDE 103 mmol/L (98-107); CREATININE, SERUM 0.61 mg/dL (0.57-1.11); EST GLOMERULAR FILTRATION RATE > 60 ML/MIN (60-); GLUCOSE 123 mg/dL (74-118); MAGNESIUM 1.8 MG/DL (1.3-2.1); POTASSIUM 3.5 mmol/L (3.5-5.1); SODIUM 141 mmol/L (136-145)
[2017-12-20 05:26] LABS: HEMOGLOBIN 9.2 g/dL (12.0-16.0); PLATELET COUNT 113 x10e3/uL (140-360)
--- NOTE | 2017-12-20 06:32 | Diagnostic Imaging Report ---
EXAM: CHEST SINGLE (PORTABLE), AP 1 view INDICATION: Intubated COMPARISON: AP view of the chest December 19, 2017 FINDINGS: LINES/TUBES: Stable endotracheal tube, right PICC and nasal/orogastric tube. LUNGS: Persistent diffuse bilateral airspace opacities. PLEURA: Suspected layering pleural effusions bilaterally. HEART AND MEDIASTINUM: Normal size and contour. BONES AND SOFT TISSUES: No acute findings. IMPRESSION: No interval change in appearance of the chest. Signed by: Dr. Hortencia Juan M.D. on 12/20/2017 6:29 AM
[2017-12-20 06:56] LABS: LYMPHOCYTES % (MANUAL) 3 % (19-48); MONOCYTES % (MANUAL) 2 % (3.4-9.0); NEUTROPHILS % (MANUAL) 94 % (40-74)
[2017-12-20 06:59] LABS: PLATELET ESTIMATE SLIGHTLY DECREASED; PLATELET MORPHOLOGY COMMENT FEW GIANT; RBC MORPHOLOGY COMMENT NORMAL
[2017-12-20 07:00] LABS: ANISOCYTOSIS SLIGHT; HYPOCHROMASIA SLIGHT; POIKILOCYTOSIS SLIGHT
[2017-12-20] MEDS: PANTOPRAZOLE 40 MG 10ML VIAL IV SCH ×2 (09:00→20:58)
[2017-12-20] MEDS: NICOTINE 7 MG PATCH TOP SCH (09:00)
[2017-12-20] MEDS: THIAMINE HCL INJ 100 MG in SODIUM CHLORIDE 0.9% 50ML 50 ML IV SCH (09:00)
[2017-12-20] MEDS: VANCOMYCIN 1GM/NS 250 ML 250 ML IV SCH (09:00)
[2017-12-20] MEDS: PROPOFOL IV EMULSION 10MG/ML 100 ML IV PRN ×2 (10:35→17:55)
[2017-12-20] MEDS: NOREPINEPHRINE 8 MG/D5W 250 ML 250 ML IV SCH (17:00)
[2017-12-20] MEDS ORDERED: SODIUM CHLORIDE 0.9% 250ML 250 ML ONE (17:02)
[2017-12-21] VITALS (72 sets, daily range): BP systolic 87–153; BP diastolic 55–101
[2017-12-21] MEDS: PROPOFOL IV EMULSION 10MG/ML 100 ML IV PRN (01:32)
[2017-12-21] MEDS: ALBUTEROL SULF 0.083% NEB SOLN 3 ML NEB NEB SCH ×6 (03:00→23:00)
[2017-12-21] MEDS: PIPER-TAZ 3.375 GM 50 ML IV SCH ×3 (05:12→21:04)
[2017-12-21 05:22] LABS: BASOPHILS # (AUTO) 0.2 (0.0-0.1); BASOPHILS % 0.6 % (0.0-1.0); EOSINOPHILS # (AUTO) 0.2 (0.0-0.4); EOSINOPHILS % 0.8 % (0.0-6.0); HEMATOCRIT 28.6 % (34.2-44.1); HEMOGLOBIN 9.9 g/dL (12.0-16.0); LYMPHOCYTES # (AUTO) 1.2 (1.0-3.2); MEAN CORPUSCULAR HEMOGLOBIN 32.8 pg (28-32); MEAN CORPUSCULAR HGB CONC 34.6 g/dL (31-35); MEAN CORPUSCULAR VOLUME 94.7 fL (81-99); MONOCYTES # (AUTO) 0.4 (0.2-0.8); MONOCYTES % 1.7 % (4.4-11.3); NEUTROPHILS # (AUTO) 19.1 (2.1-6.9); NEUTROPHILS % 80.5 % (38.7-80.0); PLATELET COUNT 163 x10e3/uL (140-360); RED BLOOD COUNT 3.02 x10e6/uL (3.6-5.1)
[2017-12-21 06:07] LABS: LYMPHOCYTES % (MANUAL) 6 % (19-48); MONOCYTES % (MANUAL) 3 % (3.4-9.0); NEUTROPHILS % (MANUAL) 91 % (40-74)
[2017-12-21 06:08] LABS: ANISOCYTOSIS SLIGHT; PLATELET ESTIMATE ADEQUATE; PLATELET MORPHOLOGY COMMENT NORMAL; POLYCHROMASIA FEW
--- NOTE | 2017-12-21 07:17 | Consultation ---
DATE OF CONSULTATION: December 21, 2017 HISTORY OF PRESENT ILLNESS: Patient is a 52-year-old female with pneumonia respiratory failure. There is also history of cirrhosis of the liver. She is in the ICU on a ventilator, currently being fed via nasogastric tube, but patient needs access to her GI tract enteral feedings. Gastroenterology has seen the patient. They were reluctant to do the percutaneous endoscopic gastrostomy because of her cirrhosis of liver. Her ultrasound reveals only trace ascites and CT scan did not comment on ascites. EXAM GENERAL: The patient is alert and intubated. ABDOMEN: Soft. There is no definite clinical ascites. Abdomen is nontender. ASSESSMENT: A 52-year-old female with cirrhosis, but only trace ascites seen on ultrasound. I think it would be best to proceed with percutaneous endoscopic gastrostomy by gastrointestinal. If this is not successful, then open gastrostomy could be done. However, I think that would be best in this situation. I have discussed with Dr. Pascual and he says he will plan to proceed with this procedure. I will be available if any complications develop or if more invasive type of enteral access is needed. Thank you for asking me to see Ms. Traore. Job#: [id number] CQ
[2017-12-21] MEDS: FENTANYL CITRATE INJ 2,000 MCG in SODIUM CHLORIDE 0.9% 250ML 210 ML IV PRN ×2 (08:28→13:50)
[2017-12-21] MEDS: THIAMINE HCL INJ 100 MG in SODIUM CHLORIDE 0.9% 50ML 50 ML IV SCH (09:13)
[2017-12-21] MEDS: PANTOPRAZOLE 40 MG 10ML VIAL IV SCH ×2 (09:13→21:04)
[2017-12-21] MEDS: NICOTINE 7 MG PATCH TOP SCH (09:13)
[2017-12-21] MEDS: VANCOMYCIN 1GM/NS 250 ML 250 ML IV SCH (10:31)
[2017-12-21] MEDS ORDERED: LIDOCAINE 1% W/EPINEPHRINE 20 ML VIAL ONE (11:22)
[2017-12-21] MEDS ORDERED: IMMU GLOBULIN,GAMMA (IGG) 300 ML IV ONE (14:00)
[2017-12-21] MEDS ORDERED: SODIUM CHLORIDE 0.9% 1000ML 1,000 ML ONE (14:08)
--- NOTE | 2017-12-21 15:06 | Operative Report ---
DATE OF PROCEDURE: December 21, 2017 PREOPERATIVE DIAGNOSIS: Respiratory failure. POSTOPERATIVE DIAGNOSIS: Respiratory failure. TITLE OF PROCEDURE: Tracheostomy with #8 Shiley [employer] W[employer] PHOTO OPERATOR tracheostomy tube. ANESTHESIA: General endotracheal. ESTIMATED BLOOD LOSS: Less than 10 mL. COMPLICATIONS: None. OPERATIVE FINDINGS: Normal neck anatomy. OPERATIVE INDICATIONS: This 51-year-old woman presents with a history of respiratory failure which has necessitated prolonged ventilator support. It is anticipated she will continue to need ventilator support and subsequent pulmonary toilet. The risks, benefits, and alternatives to surgical intervention were discussed in detail with the patient's family and they gave their informed consent to have this procedure performed. NARRATIVE REPORT: After first obtaining adequate general anesthesia through the previously placed endotracheal tube, the area of incision was infiltrated with 1% lidocaine with epinephrine 1:100,000, a total of 8 mL was used. The patient was then prepped and draped in the usual fashion. A 3-cm incision was then made 2 cm above the sternal notch with a 15-blade and carried through the subcutaneous tissues with a Bovie health information assistant. The strap muscles were identified and divided in the midline with a Yuliana hemostat and reflected laterally with the Gelpi retractor. The thyroid isthmus was transected using the Bovie health information assistant. Trachea was identified. Cricoid hook was inserted. Incision was then made between the 2nd and 3rd tracheal ring with #15 blade. An inferiorly based trapezoidal flap then created using curved Carson scissors. The endotracheal tube was partially withdrawn and a #8 Shiley [employer] OPERATOR tracheostomy tube easily inserted through the tracheostomy site. CO2 was confirmed in exhaled gases. The retractors were removed and the tracheostomy tube was then sutured in place with 2-0 nylon. Trach ties were applied and the patient was in satisfactory condition at the termination of the procedure. Job#: [id number] OLAF
[2017-12-21] MEDS ORDERED: MIDAZOLAM HCL 2 MG/2 ML VIAL ONE (15:15)
[2017-12-21] MEDS ORDERED: FENTANYL CITRATE/PF 100MCG/2 ML INJ ONE (15:15)
[2017-12-21] MEDS ORDERED: SEVOFLURANE INHAL SOLN 250 ML PEN BTL ONE (15:32)
[2017-12-21] MEDS ORDERED: ESMOLOL HCL 100MG/10ML 10 MG/ML VIAL ONE (15:32)
[2017-12-21] MEDS ORDERED: EPHEDRINE SULFATE INJ 50 MG/10 ML SYR ONE (15:32)
[2017-12-21] MEDS ORDERED: LIDOCAINE HCL 2% LOCAL INJ 5 ML SDV VIAL INJ ONE (15:32)
[2017-12-21] MEDS ORDERED: ONDANSETRON HCL INJ 2 MG/ML VIAL ONE (15:32)
[2017-12-21] MEDS ORDERED: DEXAMETHASONE SOD PHOS INJ 4 MG/ML VIAL ONE (15:32)
[2017-12-21] MEDS ORDERED: PROPOFOL IV EMULSION 10 MG/ML 20 ML VIAL ONE (15:32)
[2017-12-21] MEDS ORDERED: ROCURONIUM BROMIDE 10 MG/ML 5ML VIAL ONE (15:32)
[2017-12-21] MEDS: NOREPINEPHRINE 8 MG/D5W 250 ML 250 ML IV SCH (17:00)
--- NOTE | 2017-12-21 17:37 | Progress Note ---
DATE: December 20, 2017 SUBJECTIVE: Patient remains intubated. Despite sedation her eyes are open. She is likely going to get a tracheostomy on 12/21/2017. REVIEW OF SYSTEMS: Unobtainable. MEDICATIONS: Reviewed. See MAR. PHYSICAL EXAMINATION VITAL SIGNS: Temperature 99.7, pulse 103, respirations 25, blood pressure 130/79, oxygen saturation 95% on current ventilator setting. GENERAL: Intubated on ventilator. Nasogastric tube in place. Eyes open. Oral mucosa is moist. Anicteric sclerae. CVS: S1 and S2 regular. LUNGS: Bilaterally grossly clear. ABDOMEN: Soft, nondistended, nontender. No palpable shifting dullness. Bowel sounds present. EXTREMITIES: Warm. No leg edema. LABS: WBC has gone up to 20.99 from 15.76. Hemoglobin 9.2 from 11.8. Hematocrit 26.9. MCV 94.7, platelet count under 13,000. Sodium 14, potassium 3.5, chloride 103, bicarb 28, BUN 25, creatinine 0.61. Glucose 123. IMPRESSION: 1. Patient will need feeding gastrostomy after tracheostomy. 2. Alcoholic liver cirrhosis, seems to be fairly decompensated at this time. PLAN: Will recommend to have a surgery consult to see if surgical gastrostomy tube can be placed. Patient is at the risk of leak from PEG tube due to underlying mild ascites. Patient otherwise does not have any contraindications for upper endoscopy or PEG tube placement. Job#: [id number]
--- NOTE | 2017-12-21 17:45 | Progress Note ---
DATE: December 21, 2017 SUBJECTIVE: Patient had a tracheostomy placed today. Eyes open. NG tube is in place. REVIEW OF SYSTEMS: Unobtainable. MEDICATIONS: Reviewed JUL. PHYSICAL EXAMINATION VITAL SIGNS: Temperature 100.7, pulse ranging from 108 to 106, respirations 35, blood pressure 119/69, oxygen saturation 96% on current ventilator setting. GENERAL: Eyes open. Status post tracheostomy. Oral mucosa is moist. CVS: S1 and S2 regular but tachy with 3/6 blow murmur at the apex. LUNGS: Bilaterally grossly clear. ABDOMEN: Soft, nondistended, nontender. No palpable mass or hernia. Shifting dullness not digitally appreciable. EXTREMITIES: Warm. No leg edema. LABS: WBC gone up to 23.78, hemoglobin 9.9, hematocrit 28.6, MCV 94.7, platelet count 163,000. Sodium 141, potassium 3.5, chloride 103, bicarb 28, BUN 25, creatinine 0.61. Ultrasound of the abdomen done on 12/14/17 showed trace perihepatic and pericholecystic free fluid, partially visualized trace right pleural effusion. No brennan ascites. PROBLEM LIST 1. Alcoholic liver cirrhosis. 2. Aspiration pneumonia, bacteremia secondary to Streptococcus. Patient is on broad-spectrum intravenous antibiotic. Being followed by ID service. 3. Alcohol dependence. 4. Respiratory failure status post tracheostomy. PLAN: I had a telephonic discussion with Dr. Lundberg. He thinks that we should proceed with upper endoscopy and percutaneous endoscopy gastrostomy. There is very minimal fluid around the liver. There is no brennan ascites. Therefore, I will proceed with upper endoscopy and PEG placement on Sunday. In the interim, the patient can continue nasogastric feeding. Nasogastric feeding is to be withheld on Sunday at midnight. If patient goes into hepatic decompression and ascites gets worse, then there will be a chance of leak from the PEG site. However, if that happens, Dr. Lundberg said in that situation he will be more than happy to put surgical jejunostomy. Job#: [id number]
[2017-12-21] MEDS: VANCOMYCIN 750MG/NS 150ML IVPB 150 ML IV SCH (21:04)
[2017-12-22] VITALS (67 sets, daily range): BP systolic 83–116; BP diastolic 49–85
[2017-12-22] MEDS: PROPOFOL IV EMULSION 10MG/ML 100 ML IV PRN ×3 (01:00→13:00)
[2017-12-22] MEDS: ALBUTEROL SULF 0.083% NEB SOLN 3 ML NEB NEB SCH ×3 (03:00→11:00)
[2017-12-22] MEDS: FENTANYL CITRATE INJ 2,000 MCG in SODIUM CHLORIDE 0.9% 250ML 210 ML IV PRN ×2 (03:39→23:18)
[2017-12-22 04:56] LABS: ANION GAP 15.2 mmol/L (8-16); BLOOD UREA NITROGEN 23 mg/dL (7-26); BUN/CREATININE RATIO 42 (6-25); CARBON DIOXIDE 23 mmol/L (22-29); CHLORIDE 108 mmol/L (98-107); CREATININE, SERUM 0.55 mg/dL (0.57-1.11); EST GLOMERULAR FILTRATION RATE > 60 ML/MIN (60-); GLUCOSE 145 mg/dL (74-118); POTASSIUM 3.2 mmol/L (3.5-5.1); SODIUM 143 mmol/L (136-145)
[2017-12-22] MEDS: PIPER-TAZ 3.375 GM 50 ML IV SCH ×3 (05:00→20:53)
[2017-12-22 05:22] LABS: CALCIUM 6.9 mg/dL (8.4-10.2)
[2017-12-22 07:19] LABS: CALCIUM IONIZED 0.9 mmol/L (1.09-1.30)
[2017-12-22 07:27] LABS: ANION GAP 14.3 mmol/L (8-16); BLOOD UREA NITROGEN 24 mg/dL (7-26); BUN/CREATININE RATIO 43 (6-25); CARBON DIOXIDE 21 mmol/L (22-29); CHLORIDE 108 mmol/L (98-107); CREATININE, SERUM 0.56 mg/dL (0.57-1.11); EST GLOMERULAR FILTRATION RATE > 60 ML/MIN (60-); GLUCOSE 149 mg/dL (74-118); POTASSIUM 3.3 mmol/L (3.5-5.1); SODIUM 140 mmol/L (136-145)
[2017-12-22 07:29] LABS: CALCIUM 6.9 mg/dL (8.4-10.2)
[2017-12-22] MEDS: PANTOPRAZOLE 40 MG 10ML VIAL IV SCH ×2 (09:49→20:53)
[2017-12-22] MEDS: THIAMINE HCL INJ 100 MG in SODIUM CHLORIDE 0.9% 50ML 50 ML IV SCH (09:49)
[2017-12-22] MEDS: NICOTINE 7 MG PATCH TOP SCH (09:49)
[2017-12-22] MEDS: VANCOMYCIN 750MG/NS 150ML IVPB 150 ML IV SCH ×2 (09:49→20:53)
[2017-12-22] MEDS ORDERED: SODIUM CHLORIDE 0.9% 250ML 250 ML ONE (10:17)
[2017-12-22] MEDS ORDERED: MAGNESIUM SULFATE 2GM/50ML 50 ML IV ONE (12:15)
[2017-12-22] MEDS ORDERED: CALCIUM GLUCONATE 10% INJ 4.65 MEQ in SODIUM CHLORIDE 0.9% 50ML 50 ML IV ONE (12:15)
[2017-12-22] MEDS ORDERED: DEXMEDETOMIDINE HCL 200 MCG in SODIUM CHLORIDE 0.9% 50ML 48 ML IV PRN (12:15)
[2017-12-22] MEDS: IPRATROPIUM BROMIDE 0.02% 2.5 ML NEB NEB SCH ×3 (15:10→23:10)
[2017-12-22] MEDS: NOREPINEPHRINE 8 MG/D5W 250 ML 250 ML IV SCH (16:22)
[2017-12-23] VITALS (68 sets, daily range): BP systolic 81–144; BP diastolic 46–87
[2017-12-23] MEDS: IPRATROPIUM BROMIDE 0.02% 2.5 ML NEB NEB SCH ×6 (04:40→22:45)
[2017-12-23] MEDS: PIPER-TAZ 3.375 GM 50 ML IV SCH (04:40)
[2017-12-23 04:57] LABS: BASOPHILS # (AUTO) 0.1 (0.0-0.1); BASOPHILS % 0.4 % (0.0-1.0); EOSINOPHILS # (AUTO) 0.1 (0.0-0.4); EOSINOPHILS % 0.6 % (0.0-6.0); HEMATOCRIT 26.7 % (34.2-44.1); HEMOGLOBIN 8.6 g/dL (12.0-16.0); LYMPHOCYTES # (AUTO) 0.9 (1.0-3.2); LYMPHOCYTES % 4.7 % (18.0-39.1); MEAN CORPUSCULAR HEMOGLOBIN 32.8 pg (28-32); MEAN CORPUSCULAR HGB CONC 32.2 g/dL (31-35); MEAN CORPUSCULAR VOLUME 101.9 fL (81-99); MONOCYTES # (AUTO) 0.3 (0.2-0.8); MONOCYTES % 1.3 % (4.4-11.3); NEUTROPHILS # (AUTO) 15.9 (2.1-6.9); PLATELET COUNT 218 x10e3/uL (140-360); RED BLOOD COUNT 2.62 x10e6/uL (3.6-5.1); RED CELL DISTRIBUTION WIDTH 16.3 % (11.7-14.4)
[2017-12-23 05:05] LABS: ANION GAP 12.5 mmol/L (8-16); BLOOD UREA NITROGEN 25 mg/dL (7-26); BUN/CREATININE RATIO 50 (6-25); CALCIUM 7.3 mg/dL (8.4-10.2); CARBON DIOXIDE 22 mmol/L (22-29); CHLORIDE 112 mmol/L (98-107); EST GLOMERULAR FILTRATION RATE > 60 ML/MIN (60-); GLUCOSE 107 mg/dL (74-118); MAGNESIUM 1.7 MG/DL (1.3-2.1); POTASSIUM 3.5 mmol/L (3.5-5.1); SODIUM 143 mmol/L (136-145)
[2017-12-23] MEDS: FENTANYL CITRATE INJ 2,000 MCG in SODIUM CHLORIDE 0.9% 250ML 210 ML IV PRN (06:25)
--- NOTE | 2017-12-23 06:42 | Diagnostic Imaging Report ---
EXAM: CHEST SINGLE (PORTABLE), AP 1 view INDICATION: Shortness of breath COMPARISON: December 30, 2017 FINDINGS: LINES/TUBES: Stable tracheostomy tube and nasal/orogastric tube and right approach PICC. LUNGS: Worsening opacifications of the bilateral lungs. PLEURA: Indeterminate for effusion. HEART AND MEDIASTINUM: Normal size and contour. BONES AND SOFT TISSUES: No acute findings. IMPRESSION: Worsening opacification of the bilateral lungs. Signed by: Dr. Hortencia Juan M.D. on 12/23/2017 6:39 AM
[2017-12-23 07:08] LABS: BAND NEUTROPHILS % (MANUAL) 1 %; LYMPHOCYTES % (MANUAL) 7 % (19-48); METAMYELOCYTES % (MANUAL) 1 % (0-0); NEUTROPHILS % (MANUAL) 91 % (40-74); NUCLEATED RED BLOOD CELLS 1
[2017-12-23 07:09] LABS: ANISOCYTOSIS SLIGHT; HYPOCHROMASIA SLIGHT; PLATELET ESTIMATE ADEQUATE; PLATELET MORPHOLOGY COMMENT FEW LARGE; POIKILOCYTOSIS SLIGHT; RBC MORPHOLOGY COMMENT NORMAL
[2017-12-23 07:12] LABS: MICROCYTOSIS SLIGHT
[2017-12-23] MEDS ORDERED: HYDROCHLOROTHIAZIDE 25 MG TAB PO SCH (09:00)
[2017-12-23] MEDS: THIAMINE HCL INJ 100 MG in SODIUM CHLORIDE 0.9% 50ML 50 ML IV SCH (10:06)
[2017-12-23] MEDS: NICOTINE 7 MG PATCH TOP SCH (10:37)
[2017-12-23] MEDS: PANTOPRAZOLE 40 MG 10ML VIAL IV SCH ×2 (10:37→20:38)
[2017-12-23] MEDS: FLUCONAZOLE 200 MG/100 ML 100 ML IV SCH (10:37)
[2017-12-23] MEDS: LORAZEPAM 1 MG TAB PO SCH ×3 (11:44→22:12)
[2017-12-23] MEDS: VANCOMYCIN 750MG/NS 150ML IVPB 150 ML IV SCH ×2 (11:45→20:38)
[2017-12-23 11:56] LABS: ABG HCO3 22 mmol/L (23-28); ABG PCO2 39 mmHg (41-51); ABG PH 7.35 (7.31-7.41); ABG PO2 76 mmHg (80-105)
[2017-12-23] MEDS ORDERED: FENTANYL CITRATE IV PRN ×2 (13:30→19:15)
[2017-12-23] MEDS ORDERED: SODIUM CHLORIDE 0.9% IV PRN ×2 (13:30→19:15)
[2017-12-23] MEDS ORDERED: LORAZEPAM 1 MG TAB PO SCH (14:00)
[2017-12-23] MEDS ORDERED: POTASSIUM CHLORIDE 20 MEQ TAB CR PO ONE (14:00)
[2017-12-23] MEDS: NOREPINEPHRINE 8 MG/D5W 250 ML 250 ML IV SCH (16:33)
[2017-12-23] MEDS ORDERED: FENTANYL CITRATE INJ 2,000 MCG in SODIUM CHLORIDE 0.9% 250ML 250 ML IV PRN (19:15)
[2017-12-24] VITALS (68 sets, daily range): BP systolic 94–142; BP diastolic 57–91
[2017-12-24] MEDS: IPRATROPIUM BROMIDE 0.02% 2.5 ML NEB NEB SCH ×6 (02:40→22:50)
[2017-12-24] MEDS: LORAZEPAM 1 MG TAB PO SCH ×3 (06:03→22:51)
[2017-12-24] MEDS: ACETAMINOPHEN 325 MG/10 ML UDC NG PRN ×2 (06:18→14:00)
[2017-12-24] MEDS: PROPOFOL IV EMULSION 10MG/ML 100 ML IV PRN ×2 (06:48→17:24)
[2017-12-24] MEDS: PANTOPRAZOLE 40 MG 10ML VIAL IV SCH ×2 (09:00→21:26)
[2017-12-24] MEDS: VANCOMYCIN 750MG/NS 150ML IVPB 150 ML IV SCH ×2 (09:00→21:26)
[2017-12-24] MEDS: THIAMINE HCL INJ 100 MG in SODIUM CHLORIDE 0.9% 50ML 50 ML IV SCH (09:00)
[2017-12-24] MEDS: NICOTINE 7 MG PATCH TOP SCH (09:00)
[2017-12-24] MEDS: FLUCONAZOLE 200 MG/100 ML 100 ML IV SCH (09:00)
[2017-12-24] MEDS: FENTANYL CITRATE INJ 2,000 MCG in SODIUM CHLORIDE 0.9% 250ML 210 ML IV PRN (10:00)
[2017-12-24] MEDS: NOREPINEPHRINE 8 MG/D5W 250 ML 250 ML IV SCH (17:00)
[2017-12-25] VITALS (61 sets, daily range): BP systolic 95–135; BP diastolic 63–86
[2017-12-25] MEDS: FENTANYL CITRATE INJ 2,000 MCG in SODIUM CHLORIDE 0.9% 250ML 210 ML IV PRN ×3 (00:39→21:27)
--- NOTE | 2017-12-25 00:43 | Progress Note ---
DATE: December 24, 2017 GI PROGRESS REPORT SUBJECTIVE: Patient is status post tracheostomy, eyes open, barely follows verbal command. REVIEW OF SYSTEMS: Unobtainable. MEDICATIONS: Reviewed JUL. PHYSICAL EXAMINATION VITAL SIGNS: Temperature 98.9, pulse 124 to 127, respirations 28, blood pressure 110/72, and oxygen saturation 98% on mechanical ventilator. GENERAL: Not in acute distress. Status post tracheostomy. Oral mucosa is moist. Anicteric sclerae. NG is in place. CVS: S1 and S2 regular. Tachy with a 3/6 flow murmur at the apex. LUNGS: Bilaterally grossly clear with decreased breath sounds at bases. ABDOMEN: Soft, nondistended, and nontender. No palpable mass or hernia. Shifting dullness not digitally appreciable. EXTREMITIES: Warm. No leg edema. LABS: On December,, WBC has come down to 18.96 from 23.78, hemoglobin 8.6 from 9.9, hematocrit 26.7 from 28.6, and platelet count 218,000. Sodium 143, potassium 3.5, chloride 112, bicarb 22, BUN 25, creatinine 0.50, and glucose 107. PT/INR checked on December 15, 2017, showed PT 13.4 and INR 1.10. IMPRESSIONS 1. Alcoholic liver cirrhosis with very mild ascites. 2. Aspiration pneumonia, bacteremia secondary to streptococcus. Patient is currently being treated with broad-spectrum intravenous antibiotic under the infectious disease supervision. 3. Alcoholic dependence. 4. Respiratory failure, status post tracheostomy. PLAN: Continue NG feeding for now. Hold NG feeding past midnight. EGD/PEG likely tomorrow. Job#: [id number]
[2017-12-25] MEDS: IPRATROPIUM BROMIDE 0.02% 2.5 ML NEB NEB SCH ×6 (02:57→22:55)
[2017-12-25] MEDS: PROPOFOL IV EMULSION 10MG/ML 100 ML IV PRN (04:33)
[2017-12-25] MEDS: LORAZEPAM 1 MG TAB PO SCH ×3 (05:23→22:00)
[2017-12-25] MEDS: NICOTINE 7 MG PATCH TOP SCH (09:00)
[2017-12-25] MEDS: PANTOPRAZOLE 40 MG 10ML VIAL IV SCH ×2 (09:11→21:50)
[2017-12-25] MEDS: FLUCONAZOLE 200 MG/100 ML 100 ML IV SCH (09:11)
[2017-12-25] MEDS: VANCOMYCIN 750MG/NS 150ML IVPB 150 ML IV SCH ×2 (11:18→21:50)
[2017-12-25] MEDS ORDERED: SODIUM CHLORIDE 0.9% 250ML 250 ML ONE (11:32)
[2017-12-25] MEDS ORDERED: KETAMINE HCL INJ 50 MG/ML 10 ML VIAL ONE (14:01)
[2017-12-25] MEDS: THIAMINE HCL INJ 100 MG in SODIUM CHLORIDE 0.9% 50ML 50 ML IV SCH (14:35)
[2017-12-25] MEDS: NOREPINEPHRINE 8 MG/D5W 250 ML 250 ML IV SCH (17:00)
--- NOTE | 2017-12-25 18:57 | Diagnostic Imaging Report ---
PROCEDURE: CT CHEST WITHOUT CONTRAST CT scan of the chest WITHOUT intravenous contrast, using standard protocol. TECHNIQUE: The chest was scanned utilizing a multidetector helical scanner from the apex to the level of the adrenal glands. No IV contrast was administered per physicians request. Coronal and sagittal multiplanar reformations were obtained. COMPARISON: Patients [facility], CT, CT CHEST W, 12/11/2017, 10:33. INDICATIONS: PNEUMONIA FINDINGS: Lines/tubes: Tracheostomy tube in place. Right-sided PICC line has distal tip in the proximal right atrium. Lungs and Airways: Extensive bilateral groundglass opacities involving the upper and lower lobes, some of which are confluent in the central aspect of the upper lobes (for example series 3, image 41) and in the lingula (series 3, image 82). Associated interlobular septal thickening. Focal consolidation in the right lower lobe, which is decreased since the prior exam, however, is there is interval development of a 2.4 x 2.3 cm cystic/cavitary lesion (series 3, image 76). Compressive atelectasis of bilateral lower lobes and to a lesser degree lateral aspect of the right middle lobe. No definite masses or nodules. Airways are clear, without endobronchial lesions. Pleura: Moderate right and small to moderate left pleural effusions. No pneumothorax. Heart and mediastinum: Thyroid is unremarkable. Heart size is normal. No pericardial effusion. Aorta is non-aneurysmal. The main pulmonary artery is in the upper limit of normal, measuring 3.0 cm. Lymph nodes: Likely enlarged subcarinal lymph node which measures 1.0 cm in short axis, stable. No other mediastinal or any axillary adenopathy. Difficult to evaluate for hilar adenopathy given the lack of intravenous contrast. Abdomen: Limited views of the upper abdomen show no abnormality within the visualized liver, spleen, pancreas, or left kidney. Stable thickening of the left adrenal gland. Right adrenal gland is unremarkable Bones: No aggressive lytic lesions. Bilateral breast implants. IMPRESSION: 1. Extensive bilateral groundglass opacities involving the upper and lower lobes, some of which are confluent in the central aspect of the upper lobes and in the lingula, with associated interlobular septal thickening. Differential diagnosis includes worsening pneumonia, in the appropriate clinical setting, superimposed fluid overload/edema and ARDS. 2. Interval decrease in size of the previously visualized focal consolidation in the right lower lobe, however, there is interval development of a cystic/cavitary lesion. 3. Moderate right and [id number] left pleural effusions with associated compressive atelectasis of bilateral lower lobes and to a lesser degree lateral aspect of the right middle lobe. Yovany Salas M.D. Dictated by: Yovany Salas M.D. on 12/25/2017 at 18:05 Electronically approved by: Yovany Salas M.D. on 12/25/2017 at 19:03
[2017-12-26] VITALS (73 sets, daily range): BP systolic 76–147; BP diastolic 51–97
[2017-12-26] MEDS: PROPOFOL IV EMULSION 10MG/ML 100 ML IV PRN ×2 (03:22→13:21)
[2017-12-26] MEDS: IPRATROPIUM BROMIDE 0.02% 2.5 ML NEB NEB SCH ×6 (03:40→22:45)
[2017-12-26 04:54] LABS: BASOPHILS # (AUTO) 0.1 (0.0-0.1); BASOPHILS % 0.4 % (0.0-1.0); EOSINOPHILS # (AUTO) 0.1 (0.0-0.4); EOSINOPHILS % 0.5 % (0.0-6.0); LYMPHOCYTES # (AUTO) 1.1 (1.0-3.2); LYMPHOCYTES % 4.4 % (18.0-39.1); MEAN CORPUSCULAR HEMOGLOBIN 32.2 pg (28-32); MEAN CORPUSCULAR HGB CONC 31.7 g/dL (31-35); MEAN CORPUSCULAR VOLUME 101.6 fL (81-99); MONOCYTES # (AUTO) 0.6 (0.2-0.8); MONOCYTES % 2.6 % (4.4-11.3); NEUTROPHILS # (AUTO) 17.9 (2.1-6.9); NEUTROPHILS % 74.8 % (38.7-80.0); PLATELET COUNT 247 x10e3/uL (140-360); RED BLOOD COUNT 1.83 x10e6/uL (3.6-5.1); RED CELL DISTRIBUTION WIDTH 16.4 % (11.7-14.4)
[2017-12-26 05:11] LABS: HEMOGLOBIN 5.9 g/dL (12.0-16.0)
[2017-12-26 05:12] LABS: HEMATOCRIT 18.6 % (34.2-44.1)
[2017-12-26 05:29] LABS: ANION GAP 15.4 mmol/L (8-16); BLOOD UREA NITROGEN 19 mg/dL (7-26); BUN/CREATININE RATIO 34 (6-25); CALCIUM 7.8 mg/dL (8.4-10.2); CARBON DIOXIDE 19 mmol/L (22-29); CHLORIDE 117 mmol/L (98-107); CREATININE, SERUM 0.56 mg/dL (0.57-1.11); EST GLOMERULAR FILTRATION RATE > 60 ML/MIN (60-); GLUCOSE 83 mg/dL (74-118); POTASSIUM 3.4 mmol/L (3.5-5.1); SODIUM 148 mmol/L (136-145)
[2017-12-26] MEDS: LORAZEPAM 1 MG TAB PO SCH ×3 (05:49→22:00)
[2017-12-26] MEDS ORDERED: SODIUM CHLORIDE 0.9% 250ML 250 ML IV ONE (06:00)
[2017-12-26] MEDS ORDERED: FUROSEMIDE INJ 10 MG/ML 4 ML VIAL IV ONE (06:00)
[2017-12-26] MEDS: FENTANYL CITRATE INJ 2,000 MCG in SODIUM CHLORIDE 0.9% 250ML 210 ML IV PRN ×2 (06:00→16:00)
[2017-12-26] MEDS ORDERED: FUROSEMIDE INJ 10 MG/ML 4 ML VIAL IV NR (06:15)
[2017-12-26] MEDS: ACETAMINOPHEN 325 MG/10 ML UDC NG PRN ×2 (07:45→17:30)
[2017-12-26 08:10] LABS: INR 1.45; PROTHROMBIN TIME 16.6 seconds (11.9-14.5)
[2017-12-26 08:30] LABS: LYMPHOCYTES % (MANUAL) 8 % (19-48); METAMYELOCYTES % (MANUAL) 1 % (0-0); NEUTROPHILS % (MANUAL) 91 % (40-74); NUCLEATED RED BLOOD CELLS 3
[2017-12-26 08:32] LABS: HYPOCHROMASIA MODERATE; MICROCYTOSIS SLIG; PLATELET ESTIMATE ADEQUATE; PLATELET MORPHOLOGY COMMENT FEW LARGE; RBC MORPHOLOGY COMMENT ABNORMAL
[2017-12-26 08:33] LABS: POIKILOCYTOSIS SLIGHT
[2017-12-26 08:34] LABS: ANISOCYTOSIS SLIG
[2017-12-26] MEDS: FLUCONAZOLE 200 MG/100 ML 100 ML IV SCH (09:20)
[2017-12-26] MEDS: PANTOPRAZOLE 40 MG 10ML VIAL IV SCH ×2 (09:20→21:20)
[2017-12-26] MEDS: NICOTINE 7 MG PATCH TOP SCH (09:20)
[2017-12-26] MEDS: THIAMINE HCL INJ 100 MG in SODIUM CHLORIDE 0.9% 50ML 50 ML IV SCH (09:57)
[2017-12-26] MEDS: VANCOMYCIN 750MG/NS 150ML IVPB 150 ML IV SCH ×2 (10:44→21:20)
[2017-12-26] MEDS: HEPARIN SOD (PORCINE) 5,000 UNIT/ML VIAL SC SCH ×2 (11:20→21:21)
[2017-12-26] MEDS ORDERED: FUROSEMIDE INJ 10 MG/ML 4 ML VIAL ONE (11:57)
[2017-12-26] MEDS: NOREPINEPHRINE 8 MG/D5W 250 ML 250 ML IV SCH (17:00)
[2017-12-26] MEDS ORDERED: NOREPINEPHRINE 8 MG/D5W 250 ML 250 ML IV SCH (19:45)
--- NOTE | 2017-12-26 21:49 | Progress Note ---
DATE: December 26, 2017 GI PROGRESS REPORT SUBJECTIVE: Patient is currently verbally not responsive, status post tracheostomy, status post EGD, PEG. G-tube feeding has not been started. PEG was placed yesterday. REVIEW OF SYSTEMS: Unobtainable. MEDICATIONS: Reviewed as per MAR. PHYSICAL EXAMINATION VITAL SIGNS: Temperature 97.6 to 99.8, pulse 112, respirations 23 on current ventilator setting, blood pressure 147/86, oxygen saturation 97% on tracheostomy. GENERAL: Eyes open. Oral mucosa is moist. Anicteric sclerae. CVS: S1, S2 regular. LUNGS: Bilaterally grossly clear with decreased breath sounds at bases. ABDOMEN: Soft nondistended, nontender. No palpable mass or hernia. PEG site is clean. External bumper at 2.5 cm from the skin. No bleeding or discharge. No bleeding or any leak. Bowel sound present. EXTREMITIES: Warm. Trace leg edema. LABS: WBC 24, which has gone up from 18.96, hemoglobin 5.9, hematocrit 18.6, MCV 101.6, platelet count 247,000. Sodium 148, potassium 3.4, chloride 117, bicarb 19, BUN 19, creatinine 0.59, glucose 83. CT OF CHEST 1. Extensive bilateral ground-glass opacities involving the upper and lower lobes. 2. Interval decrease in the size of previously visualized focal consolidation in the right lower lobe. Moderate right and [id number] left pleural effusion. Differential diagnosis includes worsening pneumonia in appropriate clinical setting, superimposed fluid overload/edema and ARDS. IMPRESSIONS 1. Status post percutaneous endoscopic gastrostomy tube, site is clear. No discharge or leak. External bumper is 2.5. 2. Three-point drop in hemoglobin without any gross gastrointestinal bleeding. PLAN: G-tube feeding can be restarted now. Transfuse packed red blood cell to at least keep the hemoglobin above 7. Rest of the care as per primary team. Job#: [id number] CQ
[2017-12-27] VITALS (62 sets, daily range): BP systolic 106–162; BP diastolic 71–114
[2017-12-27] MEDS: FENTANYL CITRATE INJ 2,000 MCG in SODIUM CHLORIDE 0.9% 250ML 210 ML IV PRN ×2 (01:43→13:00)
[2017-12-27] MEDS: ACETAMINOPHEN 325 MG/10 ML UDC NG PRN ×3 (01:43→16:12)
[2017-12-27] MEDS: IPRATROPIUM BROMIDE 0.02% 2.5 ML NEB NEB SCH ×6 (02:30→22:25)
[2017-12-27] MEDS: PROPOFOL IV EMULSION 10MG/ML 100 ML IV PRN (04:04)
[2017-12-27 04:48] LABS: BASOPHILS # (AUTO) 0.1 (0.0-0.1); BASOPHILS % 0.5 % (0.0-1.0); EOSINOPHILS # (AUTO) 0.5 (0.0-0.4); EOSINOPHILS % 1.9 % (0.0-6.0); HEMATOCRIT 30.9 % (34.2-44.1); HEMOGLOBIN 10.6 g/dL (12.0-16.0); LYMPHOCYTES # (AUTO) 1.3 (1.0-3.2); LYMPHOCYTES % 5.1 % (18.0-39.1); MEAN CORPUSCULAR HEMOGLOBIN 32.1 pg (28-32); MEAN CORPUSCULAR HGB CONC 34.3 g/dL (31-35); MEAN CORPUSCULAR VOLUME 93.6 fL (81-99); MONOCYTES # (AUTO) 0.4 (0.2-0.8); MONOCYTES % 1.5 % (4.4-11.3); NEUTROPHILS # (AUTO) 19.1 (2.1-6.9); NEUTROPHILS % 72.9 % (38.7-80.0); PLATELET COUNT 224 x10e3/uL (140-360); RED CELL DISTRIBUTION WIDTH 16.8 % (11.7-14.4)
[2017-12-27 05:04] LABS: ANION GAP 13.7 mmol/L (8-16); BLOOD UREA NITROGEN 18 mg/dL (7-26); BUN/CREATININE RATIO 30 (6-25); CALCIUM 7.8 mg/dL (8.4-10.2); CARBON DIOXIDE 23 mmol/L (22-29); CHLORIDE 112 mmol/L (98-107); EST GLOMERULAR FILTRATION RATE > 60 ML/MIN (60-); GLUCOSE 131 mg/dL (74-118); SODIUM 146 mmol/L (136-145)
[2017-12-27 05:17] LABS: POTASSIUM 2.7 mmol/L (3.5-5.1)
[2017-12-27] MEDS: LORAZEPAM 1 MG TAB PO SCH ×3 (06:06→22:06)
[2017-12-27 06:20] LABS: ANISOCYTOSIS SLIGHT; BAND NEUTROPHILS % (MANUAL) 6 %; EOSINOPHILS % (MANUAL) 2 % (0-7); LYMPHOCYTES % (MANUAL) 8 % (19-48); METAMYELOCYTES % (MANUAL) 2 % (0-0); MONOCYTES % (MANUAL) 1 % (3.4-9.0); MYELOCYTES % (MANUAL) 4 % (0-0); NEUTROPHILS % (MANUAL) 76 % (40-74); NUCLEATED RED BLOOD CELLS 8; PLATELET ESTIMATE ADEQUATE; PLATELET MORPHOLOGY COMMENT FEW LARGE; POLYCHROMASIA FEW; RBC MORPHOLOGY COMMENT NORMAL
[2017-12-27] MEDS ORDERED: POTASSIUM CHLORIDE 20MEQ/15ML UDC NG ONE (06:45)
[2017-12-27] MEDS: FLUCONAZOLE 200 MG/100 ML 100 ML IV SCH (07:59)
[2017-12-27] MEDS: THIAMINE HCL INJ 100 MG in SODIUM CHLORIDE 0.9% 50ML 50 ML IV SCH (09:47)
[2017-12-27] MEDS: NICOTINE 7 MG PATCH TOP SCH (09:47)
[2017-12-27] MEDS: PANTOPRAZOLE 40 MG 10ML VIAL IV SCH ×2 (09:47→21:23)
[2017-12-27] MEDS: HEPARIN SOD (PORCINE) 5,000 UNIT/ML VIAL SC SCH ×2 (09:49→21:24)
[2017-12-27] MEDS: VANCOMYCIN 750MG/NS 150ML IVPB 150 ML IV SCH ×2 (10:00→21:23)
[2017-12-27] MEDS: VANCOMYCIN 250MG/5ML ORAL SOLN PEG SCH ×2 (12:03→17:46)
[2017-12-27] MEDS: MUPIROCIN 2% OINT 22 GM TUBE TOP SCH ×2 (12:27→16:11)
[2017-12-27] MEDS: NOREPINEPHRINE 8 MG/D5W 250 ML 250 ML IV SCH (12:29)
[2017-12-27 15:38] LABS: ANION GAP 15.4 mmol/L (8-16); BLOOD UREA NITROGEN 18 mg/dL (7-26); BUN/CREATININE RATIO 32 (6-25); CALCIUM 7.7 mg/dL (8.4-10.2); CARBON DIOXIDE 20 mmol/L (22-29); CHLORIDE 113 mmol/L (98-107); CREATININE, SERUM 0.57 mg/dL (0.57-1.11); EST GLOMERULAR FILTRATION RATE > 60 ML/MIN (60-); GLUCOSE 125 mg/dL (74-118); POTASSIUM 3.4 mmol/L (3.5-5.1); SODIUM 145 mmol/L (136-145)
[2017-12-27] MEDS: CHOLESTYRAMINE 4 GM PACKET PO SCH (16:11)
[2017-12-27] MEDS: POTASSIUM CHLORIDE 20MEQ/15ML UDC NG PRN (16:12)
--- NOTE | 2017-12-27 22:27 | Progress Note ---
DATE: December 27, 2017 GI PROGRESS NOTE SUBJECTIVE: Patient is tolerating PEG feeding. REVIEW OF SYSTEMS: Unobtainable. MEDICATIONS: As per MAR reviewed. Getting vancomycin through the PEG as well. PHYSICAL EXAMINATION VITAL SIGNS: Temperature 99, pulse ranging from 106 to 108, respirations 18, blood pressure 126/81, oxygen saturation 94% on room air. GENERAL: Not in any acute distress, status post tracheostomy, tracheostomy site is clear. No discharge. HEENT: Oral mucosa is moist. Anicteric sclerae. CVS: S1, S2 regular. LUNGS: Bilaterally grossly clear. ABDOMEN: Soft, nondistended, nontender. PEG site clean, no leak or any bleeding. No palpable masses or hernia. External bumper at 2.5 cm from the skin. EXTREMITIES: Warm. No leg edema. LABS: Stool for C. diff toxin was negative on 12/18/2017. WBC has gone up to 26.15 from 24, hemoglobin 10.6, hematocrit 30.9. MCV 93.6, platelet count 224,000. Sodium 145, potassium 3.4, chloride 113, bicarb 20, BUN 18, creatinine 0.57. IMPRESSIONS 1. Status post tracheostomy, status post percutaneous endoscopic gastrostomy. 2. Patient is in respiratory failure secondary to underlying sepsis initially intubated, although difficult to wean off; therefore, ended up getting tracheostomy. Hemoglobin was noted 5.9 yesterday. It has come up to 10.6, not clear whether she received any blood transfusion or any occult gastrointestinal bleeding. 3. Stool for Clostridium difficile toxin is negative. Patient is getting vancomycin through the percutaneous endoscopic gastrostomy. 4. Pneumonia/sepsis on broad-spectrum IV antibiotics, IV vancomycin. 5. Alcoholic liver cirrhosis. 6. Polysubstance abuse. PLAN: From GI standpoint, 1. Continue G-tube feeding. Watch for tolerance. Check residuals. Call GI for any G-tube dysfunction. 2. Will discontinue vancomycin through the PEG, patient does not have any C. difficile-associated diarrhea. PPI for GI prophylaxis. Monitor stool. No need to monitor hemoglobin. Management of alcoholic liver cirrhosis will be done as an outpatient. 3. Rest of the care as per primary team. Job#: [id number] CQ
[2017-12-28] VITALS (49 sets, daily range): BP systolic 120–165; BP diastolic 73–106
[2017-12-28] MEDS: FENTANYL CITRATE INJ 2,000 MCG in SODIUM CHLORIDE 0.9% 250ML 210 ML IV PRN ×2 (01:15→13:41)
[2017-12-28] MEDS: IPRATROPIUM BROMIDE 0.02% 2.5 ML NEB NEB SCH ×4 (01:55→15:53)
[2017-12-28] MEDS: PROPOFOL IV EMULSION 10MG/ML 100 ML IV PRN ×2 (02:05→12:00)
[2017-12-28 04:43] LABS: BASOPHILS # (AUTO) 0.1 (0.0-0.1); BASOPHILS % 0.4 % (0.0-1.0); EOSINOPHILS # (AUTO) 0.9 (0.0-0.4); EOSINOPHILS % 2.8 % (0.0-6.0); HEMATOCRIT 31.3 % (34.2-44.1); HEMOGLOBIN 10.5 g/dL (12.0-16.0); LYMPHOCYTES # (AUTO) 1.6 (1.0-3.2); LYMPHOCYTES % 5.2 % (18.0-39.1); MEAN CORPUSCULAR HEMOGLOBIN 32.4 pg (28-32); MEAN CORPUSCULAR HGB CONC 33.5 g/dL (31-35); MONOCYTES # (AUTO) 0.4 (0.2-0.8); MONOCYTES % 1.4 % (4.4-11.3); NEUTROPHILS # (AUTO) 20.5 (2.1-6.9); NEUTROPHILS % 65.8 % (38.7-80.0); RED BLOOD COUNT 3.24 x10e6/uL (3.6-5.1)
[2017-12-28 04:44] LABS: MEAN CORPUSCULAR VOLUME 96.6 fL (81-99); PLATELET COUNT 211 x10e3/uL (140-360)
[2017-12-28 05:06] LABS: ANION GAP 13.1 mmol/L (8-16); BLOOD UREA NITROGEN 17 mg/dL (7-26); BUN/CREATININE RATIO 29 (6-25); CALCIUM 8.1 mg/dL (8.4-10.2); CARBON DIOXIDE 23 mmol/L (22-29); CHLORIDE 112 mmol/L (98-107); CREATININE, SERUM 0.58 mg/dL (0.57-1.11); EST GLOMERULAR FILTRATION RATE > 60 ML/MIN (60-); GLUCOSE 127 mg/dL (74-118); POTASSIUM 3.1 mmol/L (3.5-5.1); SODIUM 145 mmol/L (136-145)
[2017-12-28] MEDS: LORAZEPAM 1 MG TAB PO SCH ×2 (05:56→15:47)
[2017-12-28] MEDS: POTASSIUM CHLORIDE 20MEQ/15ML UDC NG PRN (05:56)
[2017-12-28] MEDS: ACETAMINOPHEN 325 MG/10 ML UDC NG PRN (05:56)
--- NOTE | 2017-12-28 06:00 | Diagnostic Imaging Report ---
EXAM: CHEST SINGLE (PORTABLE), AP 1 view INDICATION: ARDS COMPARISON: 12/23/2017 FINDINGS: LINES/TUBES: Stable tracheostomy tube. NG tube has been removed. Right PICC line is stable in good position LUNGS: Stable opacifications of the bilateral lungs. PLEURA: Small bilateral pleural effusions. HEART AND MEDIASTINUM: Normal size and contour. BONES AND SOFT TISSUES: No acute findings. IMPRESSION: Stable airspace opacity involving both lungs compatible with multifocal infection versus edema Signed by: Dr. Vernon Raya M.D. on 12/28/2017 5:56 AM
[2017-12-28 06:49] LABS: BAND NEUTROPHILS % (MANUAL) 4 %; EOSINOPHILS % (MANUAL) 3 % (0-7); LYMPHOCYTES % (MANUAL) 9 % (19-48); METAMYELOCYTES % (MANUAL) 3 % (0-0); MONOCYTES % (MANUAL) 4 % (3.4-9.0); MYELOCYTES % (MANUAL) 2 % (0-0); NEUTROPHILS % (MANUAL) 73 % (40-74); NUCLEATED RED BLOOD CELLS 9
[2017-12-28 06:50] LABS: PLATELET ESTIMATE ADEQUATE; PLATELET MORPHOLOGY COMMENT FEW LARGE
[2017-12-28 06:51] LABS: ANISOCYTOSIS SLIGHT; HYPOCHROMASIA SLIGHT; RBC MORPHOLOGY COMMENT NORMAL
[2017-12-28] MEDS: MUPIROCIN 2% OINT 22 GM TUBE TOP SCH (09:02)
[2017-12-28] MEDS: NICOTINE 7 MG PATCH TOP SCH (09:02)
[2017-12-28] MEDS: CHOLESTYRAMINE 4 GM PACKET PO SCH (09:02)
[2017-12-28] MEDS: PANTOPRAZOLE 40 MG 10ML VIAL IV SCH (09:02)
[2017-12-28] MEDS: FLUCONAZOLE 200 MG/100 ML 100 ML IV SCH (09:02)
[2017-12-28] MEDS: HEPARIN SOD (PORCINE) 5,000 UNIT/ML VIAL SC SCH (09:02)
[2017-12-28] MEDS ORDERED: DEXMEDETOMIDINE HCL 200 MCG in SODIUM CHLORIDE 0.9% 50ML 48 ML IV PRN (09:45)
[2017-12-28] MEDS: THIAMINE HCL INJ 100 MG in SODIUM CHLORIDE 0.9% 50ML 50 ML IV SCH (10:17)
[2017-12-28] MEDS: VANCOMYCIN 750MG/NS 150ML IVPB 150 ML IV SCH (10:31)
--- NOTE | 2017-12-28 14:55 | Diagnostic Imaging Report ---
PROCEDURE: ULTRASOUND GUIDED THORACENTESIS COMPARISON: None. INDICATIONS:PLEURAL EFFUSION FINDINGS: After informed consent was obtained, the patient was placed in the left side down position and preliminary ultrasound of the posterior chest identified a safe route into the right pleural effusion. The overlying skin was prepped and draped in usual sterile fashion. Lidocaine 1% was used for local anesthesia. Under ultrasound guidance, a centesis needle was advanced into the pleural fluid and 450 cc of blood-tinged effusion were aspirated. The patient tolerated the procedure well and there were no immediate post-procedural complications. A post-thoracentesis chest radiograph will be obtained. Specimen was sent to the laboratory. CONCLUSION: Uncomplicated ultrasound-guided right thoracentesis with removal of 450 cc of blood-tinged effusion.. Jose Tim D.O. Dictated by: Jose Tim D.O. on 12/28/2017 at 15:01 Electronically approved by: Jose Tim D.O. on 12/28/2017 at 15:01
--- NOTE | 2017-12-28 15:20 | Diagnostic Imaging Report ---
PROCEDURE: CHEST XRAY POST PROCEDURE COMPARISON: [facility], DX, CHEST SINGLE (PORTABLE), 12/28/2017, 4:36. INDICATIONS: S/P THORACENTISIS FINDINGS: LUNGS: Diffuse airspace opacities persist consistent with multifocal pneumonia. PLEURA: Decreased size of the right pleural effusion. No pneumothorax. HEART \T\ MEDIASTINUM: The heart is within normal size-limits. BONES \T\ SOFT TISSUES: No acute findings. No change in the tracheostomy or right sided PICC. CONCLUSION: 1. Status post thoracentesis without evidence of a pneumothorax. 2. Decrease in size of the right pleural effusion. 3. Persistent airspace opacities. Jose Tim D.O. Dictated by: Jose Tim D.O. on 12/28/2017 at 15:26 Electronically approved by: Jose Tim D.O. on 12/28/2017 at 15:26
[2017-12-28 15:57] LABS: BODY FLUID APPEARANCE TURBID; BODY FLUID COLOR RED; BODY FLUID TYPE PLEURAL
[2017-12-28 16:21] LABS: RBC,BODY FLUID 40392 cells/uL; WBC,BODY FLUID 693 cells/uL
[2017-12-28 16:40] LABS: LYMPHOCYTES,BODY FLUID 10 %; MONO/MACROPHG,BODY FLUID 6 %; NEUTROPHILS,BODY FLUID 84 %
== END 2017-12-28 17:34 | DRG 4 ==
LOC: ER 07:31 → ERHOLD 12:36 → IMCU 17:20 → ICU 19:13
PROVIDERS: ADMIT Internal Medicine Cardiovascular Disease; ATTEND Internal Medicine Cardiovascular Disease
PROC: 0BH17EZ Insertion of Endotracheal Airway into Trachea, Via Natural or Artificial Opening (ICD-10-PCS; principal; 2017-12-11)
PROC: 5A1955Z Respiratory Ventilation, Greater than 96 Consecutive Hours (ICD-10-PCS; 2017-12-11)
PROC: 02HV33Z Insertion of Infusion Device into Superior Vena Cava, Percutaneous Approach (ICD-10-PCS; 2017-12-12)
PROC: 30233R1 Transfusion of Nonautologous Platelets into Peripheral Vein, Percutaneous Approach (ICD-10-PCS; 2017-12-14)
PROC: 30233N1 Transfusion of Nonautologous Red Blood Cells into Peripheral Vein, Percutaneous Approach (ICD-10-PCS; 2017-12-17)
PROC: 0B110F4 Bypass Trachea to Cutaneous with Tracheostomy Device, Open Approach (ICD-10-PCS; 2017-12-24)
PROC: 0W993ZX Drainage of Right Pleural Cavity, Percutaneous Approach, Diagnostic (ICD-10-PCS; 2017-12-28)
DX: A40.8 Other streptococcal sepsis (principal); J69.0 Pneumonitis due to inhalation of food and vomit; R65.21 Severe sepsis with septic shock; J96.21 Acute and chronic respiratory failure with hypoxia; E44.1 Mild protein-calorie malnutrition; Z68.1 Body mass index [BMI] 19.9 or less, adult; E87.1 Hypo-osmolality and hyponatremia; K76.6 Portal hypertension; D61.818 Other pancytopenia; J80 Acute respiratory distress syndrome; F50.2 Bulimia nervosa; D84.9 Immunodeficiency, unspecified; E87.6 Hypokalemia; D70.9 Neutropenia, unspecified; F10.20 Alcohol dependence, uncomplicated; K70.31 Alcoholic cirrhosis of liver with ascites; K31.89 Other diseases of stomach and duodenum; K76.0 Fatty (change of) liver, not elsewhere classified; F17.210 Nicotine dependence, cigarettes, uncomplicated; R09.02 Hypoxemia; E88.09 Other disorders of plasma-protein metabolism, not elsewhere classified; R19.7 Diarrhea, unspecified; D69.59 Other secondary thrombocytopenia
CPT/HCPCS: 32555; 36415; 36569; 36600; 70450; 71045; 71250; 71260; 74470; 76604; 76700; 80048; 80053; 80202; 82140; 82270; 82330; 82550; 82553; 82784; 82805; 82948; 83605; 83615; 83735; 83880; 84100; 84157; 84443; 84484; 85007; 85025; 85027; 85379; 85384; 85610; 85730; 86850; 86900; 86920; 87040; 87070; 87071; 87081; 87102; 87116; 87186; 87205; 87206; 87390; 87493; 89051; 93005; 93306; 94002; 94003; 94640; 96361; 96366; 97597; 99285; G0433; G0435; J0330; J0456; J0610; J0696; J1100; J1200; J1442; J1450; J1561; J1644; J1885; J1940; J2001; J2250; J2270; J2405; J2543; J3370; J3411; J3475; J3480; J7030; J7050; P9016; P9034; P9047; Q9967